=== PATIENT | female | born 1990 | race Caucasian/White ===

== ENCOUNTER 2019-05-15 07:23 | Inpatient (IN) | payer MEDICAID ==
[~2019-05-15 07:23] MED LIST: Bupivacaine 0.25% 10 ML SDV ONE
[2019-05-15] MEDS ORDERED: Nalbuphine 10 MG/1 ML Vial IVPUSH PRN (08:52)
[2019-05-15] MEDS ORDERED: Sodium Chloride 0.9% 10 ML Syringe FLUSH PRN (08:52)
[2019-05-15] MEDS ORDERED: Acetaminophen 325 MG Tab PO PRN (08:52)
[2019-05-15] MEDS ORDERED: Oxytocin/Lactated Ringers 10 UNIT/1,000 ML BAG IV SCH ×2 (09:00)
[2019-05-15] MEDS ORDERED: Ondansetron 4 MG/2 ML SDV IVPUSH PRN (10:42)
[2019-05-15] MEDS ORDERED: ePHEDrine 50 MG/ML SDV IVPUSH PRN (10:42)
--- NOTE | 2019-05-15 10:44 | PCM.PREANE ---
Preanesthetic Assessment - Anesthesia/Transfusion/Family Hx Anesthesia History: No Prior Anesthesia Family History of Anesthesia Reaction: No Transfusion History: No Prior Transfusion(s) Intubation History: Unknown - Review of Systems General: No Symptoms Pulmonary: No Symptoms (smoker: less than 1/2 ppd times 10 years), Cough Cardiovascular: No Symptoms (PIH at the end of ) Gastrointestinal: No Symptoms (GERD) Neurological: No Symptoms, Headache (migraines) Other: Reports: None - Physical Assessment NPO Status Date: 05/14/19 NPO Status Time: 20:00 Vital Signs: Last Vital Signs Temp 36.8 C 05/15/19 08:52 Pulse 84 05/15/19 08:52 Resp 16 05/15/19 08:52 BP 148/89 H 05/15/19 08:52 Pulse Ox Height: 1.7 m Weight: 101.605 kg ASA Class: 2 Mental Status: Alert & Oriented x3 Airway Class: Mallampati = 2 Dentition: Reports: Normal Dentition, Caries Thyro-Mental Finger Breadths: 3 Mouth Opening Finger Breadths: 3 ROM/Head Extension: Full Lungs: Clear to Auscultation, Normal Respiratory Effort Cardiovascular: Regular Rate, Regular Rhythm, No Murmurs - Lab Values: Laboratory Last Values WBC 10.51 K/mm3 (3.98-10.04) H 05/15/19 09:25 RBC 4.09 M/mm3 (3.98-5.22) 05/15/19 09:25 Hgb 11.4 gm/L (11.2-15.7) 05/15/19 09:25 Hct 35.6 % (34.1-44.9) 05/15/19 09:25 MCV 87.0 fl (79.4-94.8) 05/15/19 09:25 MCH 27.9 pg (25.6-32.2) 05/15/19 09:25 MCHC 32.0 g/dl (32.2-35.5) L 05/15/19 09:25 RDW Std Deviation 48.8 fL (36.4-46.3) H 05/15/19 09:25 Plt Count 234 K/mm3 (182-369) 05/15/19 09:25 MPV 12.2 fl (9.4-12.3) 05/15/19 09:25 Neut % (Auto) 80.3 % (34.0-71.1) H 05/15/19 09:25 Lymph % (Auto) 12.4 % (19.3-51.7) L 05/15/19 09:25 [place] % (Auto) 5.8 % (4.7-12.5) 05/15/19 09:25 Eos % (Auto) 0.9 (0.7-5.8) 05/15/19 09:25 Baso % (Auto) 0.2 % (0.1-1.2) 05/15/19 09:25 Neut # (Auto) 8.45 K/mm3 (1.56-6.13) H 05/15/19 09:25 Lymph # (Auto) 1.30 K/mm3 (1.18-3.74) 05/15/19 09:25 [place] # (Auto) 0.61 K/mm3 (0.24-0.36) H 05/15/19 09:25 Eos # (Auto) 0.09 K/mm3 (0.04-0.36) 05/15/19 09:25 Baso # (Auto) 0.02 K/mm3 (0.01-0.08) 05/15/19 09:25 Sodium 137 mEq/L (136-145) 05/15/19 09:25 Potassium 3.5 mEq/L (3.5-5.1) 05/15/19 09:25 Chloride 103 mEq/L (98-107) 05/15/19 09:25 Carbon Dioxide 21 mEq/L (21-32) 05/15/19 09:25 Anion Gap 16.5 (5-15) H 05/15/19 09:25 BUN 7 mg/dL (7-18) 05/15/19 09:25 Creatinine 0.6 mg/dL (0.55-1.02) 05/15/19 09:25 Est Cr Clr Drug Dosing 136.96 mL/min 05/15/19 09:25 Estimated GFR (MDRD) > 60 mL/min (>60) 05/15/19 09:25 BUN/Creatinine Ratio 11.7 (14-18) L 05/15/19 09:25 Glucose 86 mg/dL (74-106) 05/15/19 09:25 Calcium 8.4 mg/dL (8.5-10.1) L 05/15/19 09:25 Total Bilirubin 0.1 mg/dL (0.2-1.0) L 05/15/19 09:25 AST 19 U/L (15-37) 05/15/19 09:25 ALT 17 U/L (14-59) 05/15/19 09:25 Alkaline Phosphatase 83 U/L (46-116) 05/15/19 09:25 Total Protein 6.6 g/dl (6.4-8.2) 05/15/19 09:25 Albumin 2.3 g/dl (3.4-5.0) L 05/15/19 09:25 Globulin 4.3 gm/dL 05/15/19 09:25 Albumin/Globulin Ratio 0.5 (1-2) L 05/15/19 09:25 Above labs reviewed and noted and within acceptable ranges to proceed with epidural if desired. - Allergies Allergies/Adverse Reactions: Allergies Allergy/AdvReac Type Severity Reaction Status Date / Time banana Allergy Anaphylactic Verified 05/15/19 10:10 Shock kiwi Allergy Facial Verified 05/15/19 10:10 Swelling Penicillins Allergy Anaphylactic Verified 05/15/19 10:10 Shock strawberry Allergy Facial Verified 05/15/19 10:10 Swelling - Anesthesia Plan Pre-Op Medication Ordered: None - Acknowledgements Anesthesia Type Planned: Epidural Pt an Appropriate Candidate for the Planned Anesthesia: Yes Alternatives and Risks of Anesthesia Discussed w Pt/Guardian: Yes Pt/Guardian Understands and Agrees with Anesthesia Plan: Yes PreAnesthesia Questionnaire - HOME MEDS Home Medications: Home Meds Acetaminophen [Tylenol Extra Strength] 500 mg PO 05/15/19 [History] Vits #93/Iron Fum/FA [ Formula Tablet] 05/15/19 [History] - CURRENT (IN HOUSE) MEDS Current Meds: Current Medications Acetaminophen (Tylenol) 650 mg PO Q6H PRN PRN Reason: Pain (Mild 1-3) and fever Lactated Ringer's (Ringers, Lactated) 1,000 mls @ 100 mls/hr IV ASDIRECTED BERRY Oxytocin/Lactated Ringer's (Pitocin In Lr 10 Units/1,000 Ml) 10 unit in 1,000 mls @ 12 mls/hr IV TITRATE BERRY; Protocol Oxytocin/Lactated Ringer's (Pitocin In Lr 10 Units/1,000 Ml) 10 unit in 1,000 mls @ 100 mls/hr IV .CONTINUOUS BERRY Nalbuphine HCl (Nubain) 10 mg IVPUSH Q2H PRN PRN Reason: Pain Sodium Chloride (Saline Flush) 10 ml FLUSH ASDIRECTED PRN PRN Reason: Keep Vein Open
[2019-05-15] MEDS ORDERED: Phenylephrine 1 MG in Sodium Chloride 0.9% 10 ML IV SCH (10:45)
[2019-05-15] MEDS ORDERED: Bupivacaine/fentaNYL/NS 100 ML Bag EPIDUR SCH (10:45)
[2019-05-15] MEDS: Lactated Ringers 1,000 ML IV SCH ×2 (11:01→14:59)
--- NOTE | 2019-05-15 12:42 | PCM.LDHP ---
L&D History of Present Illness - General Date of Service: 05/15/19 Admit Problem/Dx: Patient Status Order with Admit Dx/Problem 05/15/19 07:44 Patient Status [ADT] Routine 05/15/19 08:52 Patient Status [ADT] Routine Admission Diagnosis/Problem Admission Diagnosis/Problem Gestational hypertension Source of Information: Patient History Limitations: Reports: No Limitations - History of Present Illness Introduction:: Lida Balderrama is a 28 year old female at 39 weeks 5 days by LMP consistent with 29 week ultrasound (KARTHIK 05/17/2019) who presented to labor and delivery for evaluation of labor. She reports that she started having regular and painful contractions about every 2-3 minutes that started last evening around 11:30 PM and continued throughout the night. They were lasting for about 1 minute at a time. This morning she came into labor and delivery for evaluation of these contractions and they had slowed down by the time she arrived to the hospital. She denies any leaking of fluid or vaginal bleeding. She reports that she was having good movement. She denies any headache, vision changes or epigastric pain. Improves with: Reports: None Worsens with: Reports: None Associated Symptoms: Denies: vaginal bleeding, vaginal discharge, vaginal fluid Present Illness Comments:: Lida Balderrama is a 28 year old female at 39 weeks 5 days by LMP consistent with 29 week ultrasound (KARTHIK 05/17/2019) who is undergoing induction of labor for gestational hypertension. She has had inconsistent care with myself starting at 28 weeks gestational age. She had her labs drawn at the [facility] but did not have any ultrasound testing done early in the . She reports that she was having issues with insurance and that is why she did not come in for earlier care. She was nonimmune to hepatitis B and was started on the hepatitis B vaccine regimen. She received her first dose of the hepatitis B vaccine on 02/27/2019 and second dose on 05/13/2019. She was given TDaP vaccine on 02/27/2019. Her care is complicated by: * Gestational hypertension with blood pressure of 154/106 on 05/13/2019 and blood pressure of 148/89 on arrival to labor and delivery today. * Late care starting at 28 weeks gestational age. * Inconsistent care with only 4 visits after she established care * Hepatitis B nonimmune with negative hepatitis B surface antibody testing in . No evidence of hepatitis B infection with negative hepatitis B surface antigen. * Gastroesophageal reflux disease and able to be controlled with omeprazole 40 mg daily * Elevated 1 hour glucose tolerance test with a value of 143 and did not complete three-hour glucose tolerance test * Patient did not have anatomy ultrasound performed during this labs Blood type: A+ Antibody screen: Negative Urine culture: Consistent with contamination Rubella status: Immune Hepatitis B surface antigen: Negative Hepatitis B surface antibody: Negative, nonimmune to hepatitis B RPR: Negative HIV: Negative Varicella-zoster: Immune Gonorrhea: Negative Chlamydia: Negative Anatomy ultrasound: Not done One hour glucose tolerance test: 143 Second trimester hematocrit/hemoglobin: 37.3%/11.0 on 01/27/2019 Platelets: 299 on 01/27/2019 GBS status: Negative Third trimester hematocrit/hemoglobin: 37.6%/12.1 on 04/10/2019 Third trimester platelets: 288 on 04/10/2019 - Related Data Allergies/Adverse Reactions: Allergies Allergy/AdvReac Type Severity Reaction Status Date / Time banana Allergy Anaphylactic Verified 05/15/19 10:10 Shock kiwi Allergy Facial Verified 05/15/19 10:10 Swelling Penicillins Allergy Anaphylactic Verified 05/15/19 10:10 Shock strawberry Allergy Facial Verified 05/15/19 10:10 Swelling Home Medications: Home Meds Acetaminophen [Tylenol Extra Strength] 500 mg PO 05/15/19 [History] Vits #93/Iron Fum/FA [ Formula Tablet] 05/15/19 [History] Past Medical History Gastrointestinal History: Reports: Other (See Below) Other Gastrointestinal History: acid reflux 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 Social & Family History - Tobacco Use Smoking Status *Q: Current Every Day Smoker Years of Tobacco use: 10 Packs/Tins Daily: 0.5 - Tobacco Core Measures Tobacco Use/Smoking Within Last 30 Days: Yes Smoking Frequency Within Last 30 Days: Reports: Five or More Cigarettes Per Day Desires Tobacco Cessation Medication: Refuses FDA Approved Med - Alcohol Use Alcohol Use History: No - Recreational Drug Use Recreational Drug Use: No - Living Situation & Occupation Living situation: Reports: Single, with Significant Other H&P Review of Systems - Review of Systems: Review Of Systems: See Below General: Reports: Chills. Denies: Fever, Malaise, Weakness, Fatigue HEENT: Denies: Headaches, Post Nasal Drip, Sinus Congestion, Sore Throat, Visual Changes Pulmonary: Reports: Cough (from smoking). Denies: Shortness of Breath, Wheezing Cardiovascular: Denies: Chest Pain, Palpitations, Dyspnea on Exertion, Orthopnea Gastrointestinal: Reports: Nausea, Vomiting (several episodes of emesis overnight). Denies: Abdominal Pain, Constipation, Diarrhea Genitourinary: Denies: Dysuria, Frequency, Burning, Pain, Urgency Musculoskeletal: Reports: Back Pain (and pelvic pain) Skin: Denies: Rash, Lesions Psychiatric: Denies: Depression, Anxiety Hematologic/Lymphatic: Denies: Anemia L&D Exam - Exam Exam: See Below - Vital Signs Vital Signs: Last Vital Signs Temp 36.8 C 05/15/19 08:52 Pulse 84 05/15/19 08:52 Resp 16 05/15/19 08:52 BP 148/89 H 05/15/19 08:52 Pulse Ox Weight: 101.605 kg - OB Specific Contraction Intensity: Irritability Movement: Active Heart Tones: Present Heart Tones per Min: 130 (positive 15 x 15 accelerations, no decelerations ) Heart Rate (FHR) Variability: Moderate (6-25 bmp) Presentation: Vertex Estimated Weight: 8-8.5 lbs by Le[place] - Onofre Score Onofre Score Cervix Position: Anterior Onofre Score Consistency: Soft Onofre Score Effacement: >80% (80%) Onofre Score Dilation: 3-4 cm (3 cm) Onofre Score 's Station: -1 ,0 (-1) Onofre Score Total: 11 - Exam General: Alert, Oriented HEENT: Conjunctiva Clear, EOMI Neck: Supple, Trachea Midline Lungs: Clear to Auscultation, Normal Respiratory Effort Cardiovascular: Regular Rate, Regular Rhythm GI/Abdominal Exam: Soft, Non-Tender, No Distention, Other (Gravid). No: Guarding, Rigid, Rebound Extremities: Normal Inspection, Pedal Edema (trace, edema to midshins bilaterally) Skin: Warm, Dry, Intact Psychiatric: Alert, Normal Affect, Normal Mood - Patient Data Lab Results Last 24 hrs: Laboratory Results - last 24 hr 05/15/19 05/15/19 05/15/19 Range/Units 08:57 09:25 09:25 WBC 10.51 H (3.98-10.04) K/mm3 RBC 4.09 (3.98-5.22) M/mm3 Hgb 11.4 (11.2-15.7) gm/L Hct 35.6 (34.1-44.9) % MCV 87.0 (79.4-94.8) fl MCH 27.9 (25.6-32.2) pg MCHC 32.0 L (32.2-35.5) g/dl RDW Std Deviation 48.8 H (36.4-46.3) fL Plt Count 234 (182-369) K/mm3 MPV 12.2 (9.4-12.3) fl Neut % (Auto) 80.3 H (34.0-71.1) % Lymph % (Auto) 12.4 L (19.3-51.7) % [facility] % (Auto) 5.8 (4.7-12.5) % Eos % (Auto) 0.9 (0.7-5.8) Baso % (Auto) 0.2 (0.1-1.2) % Neut # (Auto) 8.45 H (1.56-6.13) K/mm3 Lymph # (Auto) 1.30 (1.18-3.74) K/mm3 [facility] # (Auto) 0.61 H (0.24-0.36) K/mm3 Eos # (Auto) 0.09 (0.04-0.36) K/mm3 Baso # (Auto) 0.02 (0.01-0.08) K/mm3 Sodium 137 (136-145) mEq/L Potassium 3.5 (3.5-5.1) mEq/L Chloride 103 (98-107) mEq/L Carbon Dioxide 21 (21-32) mEq/L Anion Gap 16.5 H (5-15) BUN 7 (7-18) mg/dL Creatinine 0.6 (0.55-1.02) mg/dL Est Cr Clr Drug Dosing 136.96 mL/min Estimated GFR (MDRD) > 60 (>60) mL/min BUN/Creatinine Ratio 11.7 L (14-18) Glucose 86 (74-106) mg/dL POC Glucose (70-105) mg/dL Calcium 8.4 L (8.5-10.1) mg/dL Total Bilirubin 0.1 L (0.2-1.0) mg/dL AST 19 (15-37) U/L ALT 17 (14-59) U/L Alkaline Phosphatase 83 (46-116) U/L Total Protein 6.6 (6.4-8.2) g/dl Albumin 2.3 L (3.4-5.0) g/dl Globulin 4.3 gm/dL Albumin/Globulin Ratio 0.5 L (1-2) Ur Random Creatinine 171.2 H (30.0-125.0) mg/dL U Random Total Protein 31.6 H (0.0-11.8) mg/dL Protein/Creatinin Ratio 184.6 H (0-149) mg/g Urine Opiates Screen (QVGQDT=266) Ur Buprenorphine Scrn (CUTOFF=10) Ur Oxycodone Screen (NVN0AP=211) Urine Methadone Screen (DCJLSK=244) Ur Propoxyphene Screen (NNHBBX=998) Ur Barbiturates Screen (RDPRPT=740) Ur Tricyclics Screen (IPJZHN=348) Ur Phencyclidine Scrn (CUTOFF=25) Ur Amphetamine Screen (HPZPNY=585) U Methamphetamines Scrn (FAXUXP=286) U Benzodiazepines Scrn (SBDBGX=787) U Cocaine Metab Screen (IWXMRB=944) U Marijuana (THC) Screen (CUTOFF=50) 05/15/19 05/15/19 Range/Units 11:13 11:35 WBC (3.98-10.04) K/mm3 RBC (3.98-5.22) M/mm3 Hgb (11.2-15.7) gm/L Hct (34.1-44.9) % MCV (79.4-94.8) fl MCH (25.6-32.2) pg MCHC (32.2-35.5) g/dl RDW Std Deviation (36.4-46.3) fL Plt Count (182-369) K/mm3 MPV (9.4-12.3) fl Neut % (Auto) (34.0-71.1) % Lymph % (Auto) (19.3-51.7) % [facility] % (Auto) (4.7-12.5) % Eos % (Auto) (0.7-5.8) Baso % (Auto) (0.1-1.2) % Neut # (Auto) (1.56-6.13) K/mm3 Lymph # (Auto) (1.18-3.74) K/mm3 [facility] # (Auto) (0.24-0.36) K/mm3 Eos # (Auto) (0.04-0.36) K/mm3 Baso # (Auto) (0.01-0.08) K/mm3 Sodium (136-145) mEq/L Potassium (3.5-5.1) mEq/L Chloride (98-107) mEq/L Carbon Dioxide (21-32) mEq/L Anion Gap (5-15) BUN (7-18) mg/dL Creatinine (0.55-1.02) mg/dL Est Cr Clr Drug Dosing mL/min Estimated GFR (MDRD) (>60) mL/min BUN/Creatinine Ratio (14-18) Glucose (74-106) mg/dL POC Glucose 82 (70-105) mg/dL Calcium (8.5-10.1) mg/dL Total Bilirubin (0.2-1.0) mg/dL AST (15-37) U/L ALT (14-59) U/L Alkaline Phosphatase (46-116) U/L Total Protein (6.4-8.2) g/dl Albumin (3.4-5.0) g/dl Globulin gm/dL Albumin/Globulin Ratio (1-2) Ur Random Creatinine (30.0-125.0) mg/dL U Random Total Protein (0.0-11.8) mg/dL Protein/Creatinin Ratio (0-149) mg/g Urine Opiates Screen Negative (GOBYJD=102) Ur Buprenorphine Scrn Negative (CUTOFF=10) Ur Oxycodone Screen Negative (BFP2PP=249) Urine Methadone Screen Negative (UZMODK=280) Ur Propoxyphene Screen Negative (HOKAKY=330) Ur Barbiturates Screen Presumptive positive H (ONRTJN=149) Ur Tricyclics Screen Negative (TDJINE=583) Ur Phencyclidine Scrn Negative (CUTOFF=25) Ur Amphetamine Screen Negative (NJHWFT=563) U Methamphetamines Scrn Negative (JYJTOP=174) U Benzodiazepines Scrn Negative (IGOPDR=909) U Cocaine Metab Screen Negative (SWXAJD=885) U Marijuana (THC) Screen Negative (CUTOFF=50) Result Diagrams: 05/15/19 09:25 05/15/19 09:25 - Problem List (1) 39 weeks gestation of SNOMED Code(s): 87131893 ICD Code: Z3A.39 - 39 WEEKS GESTATION OF Status: Acute Current Visit: Yes (2) Nonimmune to hepatitis B virus SNOMED Code(s): 236925751 ICD Code: Z78.9 - OTHER SPECIFIED HEALTH STATUS Status: Acute Current Visit: Yes (3) Gestational hypertension SNOMED Code(s): 405363075 ICD Code: O13.9 - GESTATIONAL HTN W/O SIGNIFICANT PROTEINURIA, UNSP TRIMESTER Status: Acute Current Visit: Yes (4) Late care affecting in third trimester SNOMED Code(s): 653970942, 699131101, 435062993 ICD Code: O09.33 - SUPRVSN OF PREG W INSUFFICIENT ANTENAT CARE, THIRD TRIMESTER Status: Acute Current Visit: Yes (5) Limited care in third trimester SNOMED Code(s): 623344283, 016732958 ICD Code: O09.33 - SUPRVSN OF PREG W INSUFFICIENT ANTENAT CARE, THIRD TRIMESTER Status: Acute Current Visit: Yes (6) Abnormal glucose tolerance test (GTT) during , antepartum Status: Acute Current Visit: Yes Problem List Initiated/Reviewed/Updated: Yes Orders Last 24hrs: Active Orders 24 hr Category Date Time Status Patient Status [ADT] Routine ADT 05/15/19 08:52 Active Activity as Tolerated [RC] PFP Care 05/15/19 08:52 Active Blood Glucose Check, Bedside [RC] Q2HR Care 05/15/19 08:56 Active Communication Order [RC] ASDIRECTED Care 05/15/19 08:52 Active Heart Tones [RC] ASDIRECTED Care 05/15/19 08:53 Active Non Stress Test [RC] PER UNIT ROUTINE Care 05/15/19 07:44 Active Notify Provider Vital Signs [RC] PRN Care 05/15/19 08:54 Active Notify Provider [RC] ASDIRECTED Care 05/15/19 10:42 Active Notify Provider [RC] PFP Care 05/15/19 08:52 Active Notify Provider [RC] PRN Care 05/15/19 08:52 Active Oxygen Therapy [RC] ASDIRECTED Care 05/15/19 10:42 Active Peripheral IV Care [RC] . DIRECTED Care 05/15/19 08:53 Active Pulse Oximetry [RC] ASDIRECTED Care 05/15/19 10:42 Active Pump Management, Intrathecal [RC] ASDIRECTED Care 05/15/19 08:53 Active Vital Signs [RC] PER UNIT ROUTINE Care 05/15/19 07:44 Active Vital Signs [RC] PER UNIT ROUTINE Care 05/15/19 08:52 Active Regular Diet [DIET] Diet 05/15/19 Breakfast Active RAPID PLASMA REAGIN,RPR [CHEM] Routine Lab 05/15/19 09:25 Received Acetaminophen [Tylenol] Med 05/15/19 08:52 Active 650 mg PO Q6H PRN Bupivacaine/fentaNYL/NS [fentaNYL/Bupivacaine/NS 2 MCG- Med 05/15/19 10:45 Active 0.125% 100 ML] 100 ml EPIDUR ASDIRECTED Lactated Ringers [Ringers, Lactated] 1,000 ml Med 05/15/19 09:00 Active IV ASDIRECTED Nalbuphine [Nubain] Med 05/15/19 08:52 Active 10 mg IVPUSH Q2H PRN Ondansetron [Zofran] Med 05/15/19 10:42 Active 4 mg IVPUSH ONETIME PRN Oxytocin/Lactated Ringers [Pitocin in LR 10 Units/1,000 Med 05/15/19 09:00 Active ML] 10 unit in 1,000 ml IV .CONTINUOUS Oxytocin/Lactated Ringers [Pitocin in LR 10 Units/1,000 Med 05/15/19 09:00 Active ML] 10 unit in 1,000 ml IV TITRATE Phenylephrine [Kem-Synephrine] 1 mg Med 05/15/19 10:45 Active Sodium Chloride 0.9% [Normal Saline] 10 ml IV TITRATE Sodium Chloride 0.9% [Saline Flush] Med 05/15/19 08:52 Active 10 ml FLUSH ASDIRECTED PRN ePHEDrine [ePHEDrine sulfate] Med 05/15/19 10:42 Active 5 mg IVPUSH ASDIRECTED PRN fentaNYL [Sublimaze] Med 05/15/19 10:42 Active 100 mcg EPIDUR Q3H PRN Electronic Heart Tones Ext w TOCO [WOMSER] Oth 05/15/19 08:52 Ordered Routine Electronic Heart Tones Internal [WOMSER] Per Unit Ot 05/15/19 08:52 Ordered Routine Peripheral IV Insertion Adult [OM.PC] Routine Oth 05/15/19 08:52 Ordered Resuscitation Status Routine Resus Stat 05/15/19 07:44 Ordered Medication Orders Acetaminophen (Tylenol) 650 mg PO Q6H PRN PRN Reason: Pain (Mild 1-3) and fever Ephedrine Sulfate (Ephedrine Sulfate) 5 mg IVPUSH ASDIRECTED PRN PRN Reason: Hypotension Stop: 05/15/19 23:00 Fentanyl (Sublimaze) 100 mcg EPIDUR Q3H PRN PRN Reason: Pain Stop: 05/15/19 23:00 Fentanyl/Bupivacaine HCl (Fentanyl/Bupivacaine/Ns 2 Mcg-0.125% 100 Ml) 100 ml EPIDUR ASDIRECTED BERRY Stop: 05/15/19 23:00 Lactated Ringer's (Ringers, Lactated) 1,000 mls @ 100 mls/hr IV ASDIRECTED BERRY Last Admin: 05/15/19 11:01 Dose: 100 mls/hr Oxytocin/Lactated Ringer's (Pitocin In Lr 10 Units/1,000 Ml) 10 unit in 1,000 mls @ 12 mls/hr IV TITRATE BERRY; Protocol Last Titration: 05/15/19 12:00 Dose: 6 munits/min, 36 mls/hr Titration: 05/15/19 11:30 Dose: 4 munits/min, 24 mls/hr Admin: 05/15/19 11:01 Dose: 2 munits/min, 12 mls/hr Oxytocin/Lactated Ringer's (Pitocin In Lr 10 Units/1,000 Ml) 10 unit in 1,000 mls @ 100 mls/hr IV .CONTINUOUS BERRY Phenylephrine HCl 1 mg/ Sodium (Chloride) 10.1 mls @ 1 mls/sec IV TITRATE BERRY; Protocol Nalbuphine HCl (Nubain) 10 mg IVPUSH Q2H PRN PRN Reason: Pain Ondansetron HCl (Zofran) 4 mg IVPUSH ONETIME PRN PRN Reason: Nausea/Vomiting Stop: 05/15/19 23:00 Sodium Chloride (Saline Flush) 10 ml FLUSH ASDIRECTED PRN PRN Reason: Keep Vein Open Assessment/Plan Comment:: Refer to observation for induction of labor for gestational hypertension at 39 weeks 5 days Start Pitocin for induction of labor Continuous monitoring Place IV and have Lactated Ringer's at 125 ml/hr May have small amounts of regular diet Activity as tolerated May have epidural as desired Plans to breast-feed after delivery Check fingerstick blood glucose value every 2 hours to check for possible need for insulin drip during labor with not having done 3R glucose tolerance test Urine drug screen for limited care Social work consult for previous difficulty with making it to appointments due to transportation difficulty Anticipate vaginal delivery unless otherwise indicated New Cha M.D. 1:20 PM 05/15/2019
[2019-05-15] MEDS: fentaNYL 100 MCG/2 ML SDV EPIDUR PRN ×2 (14:41→16:35)
--- NOTE | 2019-05-15 16:33 | PCM.PNLD ---
Labor Progress Note - VS & Meds Vital Signs: Last Vital Signs Temp 36.8 C 05/15/19 08:52 Pulse 84 05/15/19 08:52 Resp 16 05/15/19 08:52 BP 148/89 H 05/15/19 08:52 Pulse Ox Active Medications: Current Medications Acetaminophen (Tylenol) 650 mg PO Q6H PRN PRN Reason: Pain (Mild 1-3) and fever Ephedrine Sulfate (Ephedrine Sulfate) 5 mg IVPUSH ASDIRECTED PRN PRN Reason: Hypotension Stop: 05/15/19 23:00 Fentanyl (Sublimaze) 100 mcg EPIDUR Q3H PRN PRN Reason: Pain Stop: 05/15/19 23:00 Last Admin: 05/15/19 14:41 Dose: 100 mcg Fentanyl/Bupivacaine HCl (Fentanyl/Bupivacaine/Ns 2 Mcg-0.125% 100 Ml) 100 ml EPIDUR ASDIRECTED BERRY Stop: 05/15/19 23:00 Last Admin: 05/15/19 14:40 Dose: 100 ml Lactated Ringer's (Ringers, Lactated) 1,000 mls @ 100 mls/hr IV ASDIRECTED BERRY Last Admin: 05/15/19 14:59 Dose: 100 mls/hr Oxytocin/Lactated Ringer's (Pitocin In Lr 10 Units/1,000 Ml) 10 unit in 1,000 mls @ 12 mls/hr IV TITRATE BERRY; Protocol Last Titration: 05/15/19 16:08 Dose: 6 munits/min, 36 mls/hr Oxytocin/Lactated Ringer's (Pitocin In Lr 10 Units/1,000 Ml) 10 unit in 1,000 mls @ 100 mls/hr IV .CONTINUOUS BERRY Phenylephrine HCl 1 mg/ Sodium (Chloride) 10.1 mls @ 1 mls/sec IV TITRATE BERRY; Protocol Nalbuphine HCl (Nubain) 10 mg IVPUSH Q2H PRN PRN Reason: Pain Ondansetron HCl (Zofran) 4 mg IVPUSH ONETIME PRN PRN Reason: Nausea/Vomiting Stop: 05/15/19 23:00 Sodium Chloride (Saline Flush) 10 ml FLUSH ASDIRECTED PRN PRN Reason: Keep Vein Open - Uterine Contractions Uterine Monitoring Mode: External [place] Contraction Frequency (min): 2-3 Contraction Duration (sec): 40-60 Contraction Intensity: Moderate to Strong Uterine Resting Tone: Soft - Monitoring Monitor Mode: Doppler/Auscultation Heart Rate (FHR) Per Doppler: 125 Heart Rate (FHR) Variability: Moderate (6-25 bmp) Accelerations: Present, 15x15 Decelerations: Variable, Intermittent (<50% x 20 min) Strip Review: Category II - Vaginal Exam Dilation (cm): 7 Effacement (Percent): 90 Station: 0 Cervical Position: Anterior Sterile Vaginal Exam Performed By: New Cha - Labor Progress (Free Text) Labor Progress: Patient continuing to progress well Epidural not working as well as patient would like. GARMENT CUTTER working with patient for better anesthesia Discontinue fingerstick blood glucose checks as she has had multiple checks that were normal Continue pitocin for induction of labor Plan artificial rupture of membranes once patient is more comfortable with epidural Continue to monitor vital signs for severe range blood pressures Anticipate vaginal delivery unless otherwise indicated. New Cha MD 4:32 PM 05/15/2019
--- NOTE | 2019-05-15 18:56 | PCM.PNLD ---
Labor Progress Note - VS & Meds Vital Signs: Last Vital Signs Temp 36.8 C 05/15/19 08:52 Pulse 84 05/15/19 08:52 Resp 16 05/15/19 08:52 BP 148/89 H 05/15/19 08:52 Pulse Ox Active Medications: Current Medications Acetaminophen (Tylenol) 650 mg PO Q6H PRN PRN Reason: Pain (Mild 1-3) and fever Ephedrine Sulfate (Ephedrine Sulfate) 5 mg IVPUSH ASDIRECTED PRN PRN Reason: Hypotension Stop: 05/15/19 23:00 Fentanyl (Sublimaze) 100 mcg EPIDUR Q3H PRN PRN Reason: Pain Stop: 05/15/19 23:00 Last Admin: 05/15/19 16:35 Dose: 100 mcg Fentanyl/Bupivacaine HCl (Fentanyl/Bupivacaine/Ns 2 Mcg-0.125% 100 Ml) 100 ml EPIDUR ASDIRECTED BERRY Stop: 05/15/19 23:00 Last Admin: 05/15/19 14:40 Dose: 100 ml Lactated Ringer's (Ringers, Lactated) 1,000 mls @ 100 mls/hr IV ASDIRECTED BERRY Last Admin: 05/15/19 14:59 Dose: 100 mls/hr Oxytocin/Lactated Ringer's (Pitocin In Lr 10 Units/1,000 Ml) 10 unit in 1,000 mls @ 12 mls/hr IV TITRATE BERRY; Protocol Last Titration: 05/15/19 17:06 Dose: 4 munits/min, 24 mls/hr Oxytocin/Lactated Ringer's (Pitocin In Lr 10 Units/1,000 Ml) 10 unit in 1,000 mls @ 100 mls/hr IV .CONTINUOUS BERRY Phenylephrine HCl 1 mg/ Sodium (Chloride) 10.1 mls @ 1 mls/sec IV TITRATE BERRY; Protocol Nalbuphine HCl (Nubain) 10 mg IVPUSH Q2H PRN PRN Reason: Pain Ondansetron HCl (Zofran) 4 mg IVPUSH ONETIME PRN PRN Reason: Nausea/Vomiting Stop: 05/15/19 23:00 Sodium Chloride (Saline Flush) 10 ml FLUSH ASDIRECTED PRN PRN Reason: Keep Vein Open - Uterine Contractions Uterine Monitoring Mode: External [place] Contraction Frequency (min): 1-2 Contraction Duration (sec): 40-60 Contraction Intensity: Moderate to Strong Uterine Resting Tone: Soft - Monitoring Monitor Mode: Doppler/Auscultation Heart Rate (FHR) Per Doppler: 125 Heart Rate (FHR) Variability: Moderate (6-25 bmp) Accelerations: Present, 15x15 Decelerations: None Strip Review: Category I - Vaginal Exam Dilation (cm): 8 Effacement (Percent): 100 Station: 1 Cervical Position: Anterior Sterile Vaginal Exam Performed By: New Cha - Labor Progress (Free Text) Labor Progress: Patient continuing with some progress since last check. Epidural working well at this time Artificial rupture of membranes with return of clear fluid. Mother and infant tolerated procedure without difficulty Continue pitocin for induction of labor Continue to monitor vital signs for severe range blood pressures. No evidence of preeclampsia with severe features Anticipate vaginal delivery unless otherwise indicated. New Cha MD 6:57 PM 05/15/2019
[2019-05-15] MEDS ORDERED: Lidocaine 1% 50 ML MDV ONE (22:04)
[2019-05-15] MEDS ORDERED: Oxytocin 10 Units/1 ML SDV ONE (22:18)
--- NOTE | 2019-05-15 23:09 | PCM.DEL ---
L & D Note - General Info Date of Service: 05/15/19 Mother's Due Date: 05/17/19 - Delivery Note Labor: Augmented by ARM, Induced by Oxytocin Delivery Outcome: Livebirth Delivery Method: Spontaneous Vaginal Delivery-Single Delivery Mode: Vacuum Extraction (mushroom extractor) Presentation: Left Occiput Anterior (TARIQ) Nuchal Cord: None Prep: Povidone-Iodine (Betadine Anesthesia Type: Epidural, Local Anesthetic: Lidocaine (Xylocaine) 1% Plain (10 mL) Amniotic Fluid Description: Clear Episiotomy Type: None Laceration: 3rd Degree, Perineal (midline) Suture type: Vicryl Suture size: 2-0 (Vicryl rapide and 3-0 Vicryl) Placenta: Intact, Spontaneous Cord: 3 Vessels Estimated Blood Loss: 400 Resuscitation Needed: Yes : Suctioned, Bulb Syringe, Stimulated, Warmed, [place] Used, Warmer Used Provider: New Cha Score 1 min: 7 Score 5 min: 9 Second Stage Interventions: Reports: Pushing Effectively, Pushing Ineffectively (after 1.5 hours of pushing), Pushing, Stirrups/Leg Supports Delivery Comments (Free Text/Narrative):: Stage I: Lida Balderrama was admitted for induction of labor in the setting of gestational hypertension. Patient had initial blood pressure of 148/89 on arrival to labor and delivery and she had previously had a second mild range blood pressure at a previous clinic visit. She did not have any symptoms of preeclampsia with severe features. She had testing that was done that did not show any evidence of preeclampsia. On admission her cervix was dilated to 3 cm. She was GBS negative. She was started on Pitocin for induction of labor. She was given an epidural for anesthesia. She had difficulty getting good pain control with her epidural and had a second bolus of medication and this was able to get her more comfortable. She had artificial rupture membranes with clear fluid. She progressed to complete and noted that she was having significant pelvic pain. She began pushing. Stage II: She was pushing for approximately 1.5 hours and started to have less effectiveness with her pushes. She reported that she was becoming very tired and exhausted with pushing. She felt like she needed some assistance with delivery. Discussed options with patient including vacuum extraction. The risks and benefits were discussed with the patient and she gave verbal consent. A kiwi mushroom type vacuum extractor was applied to the head and care was taken to ensure that there is not any vaginal tissue between the suction cup and head. With the next contraction suction was applied to 550 mmHg and gentle downward traction was applied. The infant was brought down somewhat with this contraction and vacuum was released at the end of the contraction. With the next contraction the suction was applied again to 550 mmHg and with 5 pushes during this contraction the head was able to be delivered. The vacuum extractor was applied for a total of 60 seconds. There were no pop offs. On 05/15/2019 she had a vacuum assisted vaginal delivery of a live male at 2202. Apgars of 7 & 9. Weight of 3310 g (7 lbs 4.8 oz). Length of 21 inches. There was no nuchal cord. was delivered in TARIQ position. The cord was doubly clamped and cut by father of the infant. was placed on mother's abdomen. Infant was then taken to the warmer for additional resuscitation. Stage III: She had a spontaneous delivery of an intact placenta in Janet presentation. Three vessel cord. She was given pitocin and fundal massage. She had a complete third-degree midline perineal laceration. The external anal sphincter muscle capsule was identified and was repaired with 4 [id number] sutures in the posterior quadrant, then in the superior quadrant, then in the inferior quadrant and then in the anterior quadrant. The remainder of the laceration was repaired in normal fashion with 3-0 Vicryl. Mom and baby were stable to recovery. EBL of 400 mL. New Cha MD 11:21 PM 05/15/2019 Induction Criteria - Onofre Score Onofre Score Dilation: 3-4 cm Onofre Score Effacement: >80% Onofre Score Infant's Station: -1 ,0 Onofre Score Consistency: Soft Onofre Score Cervix Position: Anterior Onofre Score Total: 11 Onofre Score Presenting Part: Reports: Cephalic - Induction Gestational Age >/= 39 wks: No Medical Indication: Gestational hypertension at 39 weeks 5 days Estimated Pelvis: Reports: Adequate Reassuring Monitoring Strip: Yes Absence of Tachy Systole: Yes - Augmentation Estimated Pelvis: Reports: Adequate Weight Estimated:: Reports: AGA Reassuring Monitoring Strip: Yes Absence of Tachy Systole: Yes Vacuum Extractor Progress Note - Alternative Labor Strategies Considered Alternative Labor Strategies Considered:: Reports: Yes Strategies Considered:: Reports: Contraction Intensity Adequate, Position Changes Used to Facilitate Rotation & Descent, Empty Bladder, Rest Indications Considered:: Reports: Yes Indications:: Reports: Shortening of 2nd Stage for Maternal Benefit Time Out:: Reports: Yes - Patient Prepared Patient Prepared:: Reports: Yes Informed Consent:: Reports: Verbal Risks: Reports: Yes Risks Include:: Reports: Laceration, Shoulder Dystocia, Maternal Injury, Other ( injury) Anesthesia/Analgesia Adequate:: Reports: Yes - Probability of Success High Probability of Success:: Reports: Yes Weight Estimated:: Reports: AGA Patient Diabetic:: Reports: No Pelvis Adequate:: Reports: Yes Position:: TARIQ Asynclitic:: Reports: No Station:: +2 - Application Time Maximum Application Time & Number of Pop-Offs Predetermined:: Reports: Yes Maximum Pressure Maintained in [place] (cm Hg):: 55 Total Application Time (min): *max=20min: 1 Number of Times Cup Disengaged:: 0 Type of Vacuum Used:: Reports: Cup: Mushroom type Vacuum Extraction: Successful - Exit Strategy Exit strategy available:: Reports: Yes and resuscitation teams readily available:: Reports: Yes - General Info Date of Service: 05/15/19 - Patient Data Vitals - Most Recent: Last Vital Signs Temp 36.8 C 05/15/19 08:52 Pulse 84 05/15/19 08:52 Resp 16 05/15/19 08:52 BP 148/89 H 05/15/19 08:52 Pulse Ox Weight - Most Recent: 101.605 kg I&O - Last 24 Hours: Intake & Output 05/15/19 05/15/19 05/16/19 14:59 22:59 06:59 Intake Total 1000 Balance 1000 Lab Results Last 24 Hours: Laboratory Results - last 24 hr 05/15/19 05/15/19 05/15/19 Range/Units 08:57 09:25 09:25 WBC 10.51 H (3.98-10.04) K/mm3 RBC 4.09 (3.98-5.22) M/mm3 Hgb 11.4 (11.2-15.7) gm/L Hct 35.6 (34.1-44.9) % MCV 87.0 (79.4-94.8) fl MCH 27.9 (25.6-32.2) pg MCHC 32.0 L (32.2-35.5) g/dl RDW Std Deviation 48.8 H (36.4-46.3) fL Plt Count 234 (182-369) K/mm3 MPV 12.2 (9.4-12.3) fl Neut % (Auto) 80.3 H (34.0-71.1) % Lymph % (Auto) 12.4 L (19.3-51.7) % [place] % (Auto) 5.8 (4.7-12.5) % Eos % (Auto) 0.9 (0.7-5.8) Baso % (Auto) 0.2 (0.1-1.2) % Neut # (Auto) 8.45 H (1.56-6.13) K/mm3 Lymph # (Auto) 1.30 (1.18-3.74) K/mm3 [place] # (Auto) 0.61 H (0.24-0.36) K/mm3 Eos # (Auto) 0.09 (0.04-0.36) K/mm3 Baso # (Auto) 0.02 (0.01-0.08) K/mm3 Sodium 137 (136-145) mEq/L Potassium 3.5 (3.5-5.1) mEq/L Chloride 103 (98-107) mEq/L Carbon Dioxide 21 (21-32) mEq/L Anion Gap 16.5 H (5-15) BUN 7 (7-18) mg/dL Creatinine 0.6 (0.55-1.02) mg/dL Est Cr Clr Drug Dosing 136.96 mL/min Estimated GFR (MDRD) > 60 (>60) mL/min BUN/Creatinine Ratio 11.7 L (14-18) Glucose 86 (74-106) mg/dL POC Glucose (70-105) mg/dL Calcium 8.4 L (8.5-10.1) mg/dL Total Bilirubin 0.1 L (0.2-1.0) mg/dL AST 19 (15-37) U/L ALT 17 (14-59) U/L Alkaline Phosphatase 83 (46-116) U/L Total Protein 6.6 (6.4-8.2) g/dl Albumin 2.3 L (3.4-5.0) g/dl Globulin 4.3 gm/dL Albumin/Globulin Ratio 0.5 L (1-2) Ur Random Creatinine 171.2 H (30.0-125.0) mg/dL U Random Total Protein 31.6 H (0.0-11.8) mg/dL Protein/Creatinin Ratio 184.6 H (0-149) mg/g Urine Opiates Screen (MUJOMM=483) Ur Buprenorphine Scrn (CUTOFF=10) Ur Oxycodone Screen (SOW0QY=294) Urine Methadone Screen (PEAINE=472) Ur Propoxyphene Screen (AOKRBO=016) Ur Barbiturates Screen (OGPRXO=358) Ur Tricyclics Screen (QECMNK=971) Ur Phencyclidine Scrn (CUTOFF=25) Ur Amphetamine Screen (QOQWXQ=716) U Methamphetamines Scrn (GPSEMC=724) U Benzodiazepines Scrn (MRFMYW=272) U Cocaine Metab Screen (CJAGFZ=150) U Marijuana (THC) Screen (CUTOFF=50) 05/15/19 05/15/19 05/15/19 Range/Units 11:13 11:35 13:04 WBC (3.98-10.04) K/mm3 RBC (3.98-5.22) M/mm3 Hgb (11.2-15.7) gm/L Hct (34.1-44.9) % MCV (79.4-94.8) fl MCH (25.6-32.2) pg MCHC (32.2-35.5) g/dl RDW Std Deviation (36.4-46.3) fL Plt Count (182-369) K/mm3 MPV (9.4-12.3) fl Neut % (Auto) (34.0-71.1) % Lymph % (Auto) (19.3-51.7) % [place] % (Auto) (4.7-12.5) % Eos % (Auto) (0.7-5.8) Baso % (Auto) (0.1-1.2) % Neut # (Auto) (1.56-6.13) K/mm3 Lymph # (Auto) (1.18-3.74) K/mm3 [place] # (Auto) (0.24-0.36) K/mm3 Eos # (Auto) (0.04-0.36) K/mm3 Baso # (Auto) (0.01-0.08) K/mm3 Sodium (136-145) mEq/L Potassium (3.5-5.1) mEq/L Chloride (98-107) mEq/L Carbon Dioxide (21-32) mEq/L Anion Gap (5-15) BUN (7-18) mg/dL Creatinine (0.55-1.02) mg/dL Est Cr Clr Drug Dosing mL/min Estimated GFR (MDRD) (>60) mL/min BUN/Creatinine Ratio (14-18) Glucose (74-106) mg/dL POC Glucose 82 79 (70-105) mg/dL Calcium (8.5-10.1) mg/dL Total Bilirubin (0.2-1.0) mg/dL AST (15-37) U/L ALT (14-59) U/L Alkaline Phosphatase (46-116) U/L Total Protein (6.4-8.2) g/dl Albumin (3.4-5.0) g/dl Globulin gm/dL Albumin/Globulin Ratio (1-2) Ur Random Creatinine (30.0-125.0) mg/dL U Random Total Protein (0.0-11.8) mg/dL Protein/Creatinin Ratio (0-149) mg/g Urine Opiates Screen Negative (ODGVRU=351) Ur Buprenorphine Scrn Negative (CUTOFF=10) Ur Oxycodone Screen Negative (TMY0ML=605) Urine Methadone Screen Negative (FRDCKQ=823) Ur Propoxyphene Screen Negative (ZGMJKV=539) Ur Barbiturates Screen Presumptive positive H (LFRYOD=635) Ur Tricyclics Screen Negative (WJCJGU=643) Ur Phencyclidine Scrn Negative (CUTOFF=25) Ur Amphetamine Screen Negative (EGAJMA=704) U Methamphetamines Scrn Negative (ZXFIPD=658) U Benzodiazepines Scrn Negative (KFHMWL=166) U Cocaine Metab Screen Negative (OBFJQH=730) U Marijuana (THC) Screen Negative (CUTOFF=50) 05/15/19 Range/Units 15:05 WBC (3.98-10.04) K/mm3 RBC (3.98-5.22) M/mm3 Hgb (11.2-15.7) gm/L Hct (34.1-44.9) % MCV (79.4-94.8) fl MCH (25.6-32.2) pg MCHC (32.2-35.5) g/dl RDW Std Deviation (36.4-46.3) fL Plt Count (182-369) K/mm3 MPV (9.4-12.3) fl Neut % (Auto) (34.0-71.1) % Lymph % (Auto) (19.3-51.7) % [place] % (Auto) (4.7-12.5) % Eos % (Auto) (0.7-5.8) Baso % (Auto) (0.1-1.2) % Neut # (Auto) (1.56-6.13) K/mm3 Lymph # (Auto) (1.18-3.74) K/mm3 [place] # (Auto) (0.24-0.36) K/mm3 Eos # (Auto) (0.04-0.36) K/mm3 Baso # (Auto) (0.01-0.08) K/mm3 Sodium (136-145) mEq/L Potassium (3.5-5.1) mEq/L Chloride (98-107) mEq/L Carbon Dioxide (21-32) mEq/L Anion Gap (5-15) BUN (7-18) mg/dL Creatinine (0.55-1.02) mg/dL Est Cr Clr Drug Dosing mL/min Estimated GFR (MDRD) (>60) mL/min BUN/Creatinine Ratio (14-18) Glucose (74-106) mg/dL POC Glucose 79 (70-105) mg/dL Calcium (8.5-10.1) mg/dL Total Bilirubin (0.2-1.0) mg/dL AST (15-37) U/L ALT (14-59) U/L Alkaline Phosphatase (46-116) U/L Total Protein (6.4-8.2) g/dl Albumin (3.4-5.0) g/dl Globulin gm/dL Albumin/Globulin Ratio (1-2) Ur Random Creatinine (30.0-125.0) mg/dL U Random Total Protein (0.0-11.8) mg/dL Protein/Creatinin Ratio (0-149) mg/g Urine Opiates Screen (CTGVZJ=095) Ur Buprenorphine Scrn (CUTOFF=10) Ur Oxycodone Screen (CWD4RJ=182) Urine Methadone Screen (XLZYVN=028) Ur Propoxyphene Screen (KDNLWX=077) Ur Barbiturates Screen (IGGDJC=034) Ur Tricyclics Screen (HBERTL=723) Ur Phencyclidine Scrn (CUTOFF=25) Ur Amphetamine Screen (ZNDILW=846) U Methamphetamines Scrn (JBKBCJ=088) U Benzodiazepines Scrn (JESOBJ=265) U Cocaine Metab Screen (ANKDLU=285) U Marijuana (THC) Screen (CUTOFF=50) Med Orders - Current: Current Medications Acetaminophen (Tylenol) 650 mg PO Q6H PRN PRN Reason: Pain (Mild 1-3) and fever Lactated Ringer's (Ringers, Lactated) 1,000 mls @ 100 mls/hr IV ASDIRECTED BERRY Last Admin: 05/15/19 14:59 Dose: 100 mls/hr Oxytocin/Lactated Ringer's (Pitocin In Lr 10 Units/1,000 Ml) 10 unit in 1,000 mls @ 12 mls/hr IV TITRATE BERRY; Protocol Last Titration: 05/15/19 20:17 Dose: 0 munits/min, 0 mls/hr Oxytocin/Lactated Ringer's (Pitocin In Lr 10 Units/1,000 Ml) 10 unit in 1,000 mls @ 100 mls/hr IV .CONTINUOUS BERRY Phenylephrine HCl 1 mg/ Sodium (Chloride) 10.1 mls @ 1 mls/sec IV TITRATE BERRY; Protocol Nalbuphine HCl (Nubain) 10 mg IVPUSH Q2H PRN PRN Reason: Pain Last Admin: 05/15/19 20:05 Dose: 10 mg Sodium Chloride (Saline Flush) 10 ml FLUSH ASDIRECTED PRN PRN Reason: Keep Vein Open Discontinued Medications Ephedrine Sulfate (Ephedrine Sulfate) 5 mg IVPUSH ASDIRECTED PRN PRN Reason: Hypotension Stop: 05/15/19 23:00 Fentanyl (Sublimaze) 100 mcg EPIDUR Q3H PRN PRN Reason: Pain Stop: 05/15/19 23:00 Last Admin: 05/15/19 16:35 Dose: 100 mcg Fentanyl/Bupivacaine HCl (Fentanyl/Bupivacaine/Ns 2 Mcg-0.125% 100 Ml) 100 ml EPIDUR ASDIRECTED BERRY Stop: 05/15/19 23:00 Last Admin: 05/15/19 14:40 Dose: 100 ml Lidocaine HCl (Xylocaine 1%) Confirm Administered Dose 50 ml .ROUTE .STK-MED ONE Stop: 05/15/19 22:05 Ondansetron HCl (Zofran) 4 mg IVPUSH ONETIME PRN PRN Reason: Nausea/Vomiting Stop: 05/15/19 23:00 Oxytocin (Pitocin) Confirm Administered Dose 10 unit .ROUTE .STK-MED ONE Stop: 05/15/19 22:19 - Problem List & Annotations (1) 39 weeks gestation of SNOMED Code(s): 94585738 Code(s): Z3A.39 - 39 WEEKS GESTATION OF Status: Acute Current Visit: Yes (2) Nonimmune to hepatitis B virus SNOMED Code(s): 089693299 Code(s): Z78.9 - OTHER SPECIFIED HEALTH STATUS Status: Acute Current Visit: Yes (3) Gestational hypertension SNOMED Code(s): 999378195 Code(s): O13.9 - GESTATIONAL HTN W/O SIGNIFICANT PROTEINURIA, UNSP TRIMESTER Status: Acute Current Visit: Yes (4) Late care affecting in third trimester SNOMED Code(s): 299745750, 659034275, 230300472 Code(s): O09.33 - SUPRVSN OF PREG W INSUFFICIENT ANTENAT CARE, THIRD TRIMESTER Status: Acute Current Visit: Yes (5) Limited care in third trimester SNOMED Code(s): 720119865, 165883565 Code(s): O09.33 - SUPRVSN OF PREG W INSUFFICIENT ANTENAT CARE, THIRD TRIMESTER Status: Acute Current Visit: Yes (6) Abnormal glucose tolerance test (GTT) during , antepartum Status: Acute Current Visit: Yes (7) Vaginal delivery SNOMED Code(s): 621114430 Code(s): O80 - ENCOUNTER FOR FULL-TERM UNCOMPLICATED DELIVERY Status: Acute Current Visit: Yes (8) Vacuum extractor delivery, delivered SNOMED Code(s): 157229507 Code(s): O66.5 - ATTEMPTED APPLICATION OF VACUUM EXTRACTOR AND FORCEPS Status: Acute Current Visit: Yes (9) Third degree perineal laceration SNOMED Code(s): 23545474, 361336823 Code(s): O70.20 - THIRD DEGREE PERINEAL LACERATION DURING DELIVERY, UNSP Status: Acute Current Visit: Yes - Problem List Review Problem List Initiated/Reviewed/Updated: Yes - My Orders Last 24 Hours: My Active Orders 05/15/19 07:44 Non Stress Test [RC] PER UNIT ROUTINE Vital Signs [RC] PER UNIT ROUTINE Resuscitation Status Routine 05/15/19 08:52 Patient Status [ADT] Routine Activity as Tolerated [RC] PFP Communication Order [RC] ASDIRECTED Notify Provider [RC] PFP Notify Provider [RC] PRN Vital Signs [RC] PER UNIT ROUTINE Acetaminophen [Tylenol] 650 mg PO Q6H PRN Nalbuphine [Nubain] 10 mg IVPUSH Q2H PRN Sodium Chloride 0.9% [Saline Flush] 10 ml FLUSH ASDIRECTED PRN Electronic Heart Tones Ext w TOCO [WOMSER] Routine Electronic Heart Tones Internal [WOMSER] Per Unit Routine Peripheral IV Insertion Adult [OM.PC] Routine 05/15/19 08:53 Heart Tones [RC] ASDIRECTED Peripheral IV Care [RC] . DIRECTED Pump Management, Intrathecal [RC] ASDIRECTED 05/15/19 08:54 Notify Provider Vital Signs [RC] PRN 05/15/19 08:56 Blood Glucose Check, Bedside [RC] .PRN 05/15/19 09:00 Lactated Ringers [Ringers, Lactated] 1,000 ml IV ASDIRECTED Oxytocin/Lactated Ringers [Pitocin in LR 10 Units/1,000 ML] 10 unit in 1,000 ml IV .CONTINUOUS Oxytocin/Lactated Ringers [Pitocin in LR 10 Units/1,000 ML] 10 unit in 1,000 ml IV TITRATE 05/15/19 09:25 RAPID PLASMA REAGIN,RPR [CHEM] Routine 05/15/19 22:55 Patient Status Manage Transfer [TRANSFER] Routine 05/15/19 Breakfast Regular Diet [DIET] - Plan Plan:: Admit to inpatient following vacuum-assisted vaginal delivery Patient with infiltration of her IV during delivery. Patient given Pitocin 10 units IM after delivery of the placenta Regular diet Vitals per unit routine. Monitor for any signs or symptoms of severe features of preeclampsia. Patient with gestational hypertension during labor. Ibuprofen and Tylenol for pain control Assist with breast-feeding as needed Continue to monitor lochia Plan for patient to receive Colace due to third-degree laceration. Patient should try to have soft bowel movements to reduce chances for complications with her third-degree laceration. Plan for case management to see patient due to late care with inconsistent visits once established due to transportation issues. Anticipate discharge home on day #2 New Cha MD 11:21 PM 05/15/2019
[2019-05-15] MEDS: Acetaminophen 325 MG Tab PO PRN (23:15)
[2019-05-15] MEDS: Ibuprofen 600 MG Tab PO PRN (23:15)
[2019-05-15] MEDS ORDERED: Magnesium Hydroxide 400 MG/5 ML Susp 30 ML Cup PO PRN (23:22)
[2019-05-15] MEDS ORDERED: Hydrocortisone Acetate 25 MG Supp RECTAL PRN (23:22)
[2019-05-15] MEDS ORDERED: Lanolin 100% Cream 7 GM Tube TOP PRN (23:22)
[2019-05-15] MEDS ORDERED: Oxytocin 10 Units/1 ML SDV IM ONE (23:22)
[2019-05-15] MEDS ORDERED: Benzocaine/Menthol 20%-0.5% Spray 56 GM Canister TOP PRN (23:22)
[2019-05-15] MEDS ORDERED: Witch Hazel Medicated Pads 40/Jar TOP PRN (23:22)
[2019-05-15] MEDS ORDERED: oxyCODONE 5 MG Tab PO ONE (23:32)
[2019-05-16] MEDS ORDERED: Lactated Ringers 1,000 ML IV ONE (00:36)
[2019-05-16] MEDS ORDERED: Lactated Ringers 1,000 ML IV SCH (00:45)
--- NOTE | 2019-05-16 00:49 | PCM.SN ---
- Free Text/Narrative Note: S: Called back to patient's room to evaluate significant pelvic and rectal pain. Patient reports significant rectal pain that is unable to be controlled. She had been given Tylenol, ibuprofen and oxycodone 5 mg by mouth. These did not help at all with her pain. She did not have any significant vaginal bleeding but has a significant pain. Patient underwent a vacuum-assisted vaginal delivery at 2202 on 05/15/2019. O: Vital Signs - 24 hr 05/15/19 08:52 Temperature [ 36.8 C Temporal] Pulse, 84 Peripheral [ Pulse Oximetry] Respiratory 16 Rate Blood Pressure 148/89 H [Upper Arm] Physical exam Gen.: Moderate distress, laying on right side Lungs: Unlabored breathing Abdomen: Soft, appropriate tenderness, no distention Pelvis: Normal appearing external genitalia. Left labia minora with small hematoma that has not expanded since time of delivery, left and posterior vaginal awan with significant hematoma noted filling the large majority of the vaginal canal. Minimal lochia at this time. After evaluation of the perineum and vaginal canal there was noted to be significant left and posterior vaginal sidewall hematoma. A scalpel was used to drain the hematoma and this was able to get her pain under significant control. The area with suspected vaginal artery laceration was visualized and this was suture ligated using locking sutures into the vaginal sidewall. After the sutures were placed the bleeding had slowed significantly and her pain was improved. Patient lost an additional 600 mL of blood from drainage of the vaginal hematoma and vaginal artery bleeding. Assessment/plan 28-year-old G1 now P1 001 status post vacuum-assisted vaginal delivery with third-degree laceration and vaginal sidewall hematoma and vaginal artery laceration. She underwent drainage of the vaginal hematoma and suture ligation of the arterial bleeding. * CBC and type and screen stat * Insert IV and start 1 L fluid bolus with lactated Ringer's and then continue on 150 mL/h * Oxycodone 5 mg by mouth 1 dose now * Transition to [place] 5/325 to help to control her pain given vaginal hematoma * Continue to monitor vital signs closely for any signs of acute blood loss anemia necessitating transfusion * Continue to monitor for any signs of severe features of preeclampsia including severe range blood pressures * Suspect that vaginal bleeding is stopped at this time and that the vaginal artery is suture ligated. * Anticipate discharge on day #2 New Cha M.D. 12:49 AM 05/16/2019
[2019-05-16] MEDS ORDERED: oxyCODONE 5 MG Tab PO ONE (00:50)
[2019-05-16] MEDS ORDERED: Acetaminophen/HYDROcodone 325-5 MG Tab PO PRN ×2 (00:50)
--- NOTE | 2019-05-16 01:41 | PCM.SN ---
- Free Text/Narrative Note: S: Call to patient's room after she had loss of consciousness after standing. Patient reports that she was standing at the foot of the bed and became lightheaded and dizzy and then lost consciousness. She did not have any signs of a seizure but did have posturing. Patient had just underwent a vacuum- assisted vaginal delivery with subsequent left and posterior vaginal sidewall hematoma that was drained with a total EBL between the 2 procedures being 1000 mL. Patient denies any shortness of breath. She denies any chest pain. After lying down she reports that her lightheadedness and dizziness has improved. She states that she is just tired and fatigued from the long day that she has had and reports that she has had minimal sleep the last 24 hours. She reports that her vaginal pain is at a 4/10 after being at a 10+/10 earlier. O: Gen.: Pale with loss of color of her lips, return of color to her lips after laying in bed for 5-10 minutes, alert and oriented 3 Lungs: Unlabored breathing Heart: Regular rate Abdomen: Soft, appropriate tenderness, fundus at the umbilicus, no distention Pelvis: Minimal bleeding on the perineum Assessment/plan 28-year-old G [id number] status post vacuum-assisted vaginal delivery, complicated by third-degree laceration and vaginal hematoma that was drained and maternal hemorrhage with EBL of 1000 mL, day #1. Suspect the patient had loss of consciousness is due to positional changes with acute blood loss anemia. * Continue with IV fluid bolus and then continue with lactated Ringer's 150 mL/h * CBC at 0500 to check for acute blood loss anemia. Suspect that patient will need blood transfusion * Continue to monitor closely for any signs of severe anemia with persistent tachycardia or hypotension that may necessitate a blood transfusion based on symptoms * If patient continues to be lightheaded and dizzy upon standing would recommend for transfusion * Continue to monitor for any signs of severe features of preeclampsia * Continue to monitor for any signs of worsening of her vaginal hematoma such as severe pain or significant bleeding * Anticipate discharge on day #2 unless otherwise indicated based on patient's condition New Cha M.D. 1:40 AM 05/16/2019
[2019-05-16] MEDS ORDERED: Aluminum Hydroxide/Magnesium Hydroxide/Simethicone Susp 30 ML Cup PO PRN (07:47)
--- NOTE | 2019-05-16 07:59 | PCM.SN ---
- Free Text/Narrative Note: Post Progress Note PPD # 1 Subjective: Doing okay overall. Patient has had short recovery time since delivery and evacuation of vaginal hematoma. Patient has not stood up or ambulated since loss of consciousness episode. Lochia minimal. Patient has not voided since delivery. Denies any nausea or vomiting. She has not had any fluids or food after delivery. She reports that she is having moderate amount of acid reflux and has had this outside of as well. Pain controlled with [place] and Ibuprofen. Patient planning for breast-feeding but has had difficulty latching and she is giving bottle supplementation minimal difficulty. Objective: Vitals: Vital Signs - 8 hr 05/16/19 05/16/19 05/16/19 02:00 02:30 03:00 Blood Pressure 110/65 115/66 109/62 [Upper Arm] 05/16/19 04:00 Blood Pressure 132/78 [Upper Arm] Physical Exam General: Pale, alert and oriented, no acute distress Lungs: Clear to auscultation bilaterally Heart: Regular rate and rhythm Abdomen: Soft, minimal appropriate tenderness, non-distended, fundus midline, nontender, and at the umbilicus Pelvis: Minimal amount of blood on the perineum Extremities: Trace edema in bilateral lower extremities to mid shins Laboratory Results - last 24 hr 05/15/19 05/15/19 05/15/19 Range/Units 08:57 09:25 09:25 WBC 10.51 H (3.98-10.04) K/mm3 RBC 4.09 (3.98-5.22) M/mm3 Hgb 11.4 (11.2-15.7) gm/L Hct 35.6 (34.1-44.9) % MCV 87.0 (79.4-94.8) fl MCH 27.9 (25.6-32.2) pg MCHC 32.0 L (32.2-35.5) g/dl RDW Std Deviation 48.8 H (36.4-46.3) fL Plt Count 234 (182-369) K/mm3 MPV 12.2 (9.4-12.3) fl Neut % (Auto) 80.3 H (34.0-71.1) % Lymph % (Auto) 12.4 L (19.3-51.7) % Cowley % (Auto) 5.8 (4.7-12.5) % Eos % (Auto) 0.9 (0.7-5.8) Baso % (Auto) 0.2 (0.1-1.2) % Neut # (Auto) 8.45 H (1.56-6.13) K/mm3 Lymph # (Auto) 1.30 (1.18-3.74) K/mm3 Cowley # (Auto) 0.61 H (0.24-0.36) K/mm3 Eos # (Auto) 0.09 (0.04-0.36) K/mm3 Baso # (Auto) 0.02 (0.01-0.08) K/mm3 Manual Slide Review Sodium 137 (136-145) mEq/L Potassium 3.5 (3.5-5.1) mEq/L Chloride 103 (98-107) mEq/L Carbon Dioxide 21 (21-32) mEq/L Anion Gap 16.5 H (5-15) BUN 7 (7-18) mg/dL Creatinine 0.6 (0.55-1.02) mg/dL Est Cr Clr Drug Dosing 136.96 mL/min Estimated GFR (MDRD) > 60 (>60) mL/min BUN/Creatinine Ratio 11.7 L (14-18) Glucose 86 (74-106) mg/dL POC Glucose (70-105) mg/dL Calcium 8.4 L (8.5-10.1) mg/dL Total Bilirubin 0.1 L (0.2-1.0) mg/dL AST 19 (15-37) U/L ALT 17 (14-59) U/L Alkaline Phosphatase 83 (46-116) U/L Total Protein 6.6 (6.4-8.2) g/dl Albumin 2.3 L (3.4-5.0) g/dl Globulin 4.3 gm/dL Albumin/Globulin Ratio 0.5 L (1-2) Ur Random Creatinine 171.2 H (30.0-125.0) mg/dL U Random Total Protein 31.6 H (0.0-11.8) mg/dL Protein/Creatinin Ratio 184.6 H (0-149) mg/g Urine Opiates Screen (DQALIH=905) Ur Buprenorphine Scrn (CUTOFF=10) Ur Oxycodone Screen (AMV5WZ=775) Urine Methadone Screen (VAOTUN=557) Ur Propoxyphene Screen (OUZPAF=886) Ur Barbiturates Screen (WTMMTV=489) Ur Tricyclics Screen (QGWOFW=648) Ur Phencyclidine Scrn (CUTOFF=25) Ur Amphetamine Screen (UZLPNC=164) U Methamphetamines Scrn (KXDUJV=084) U Benzodiazepines Scrn (RUCLSW=663) U Cocaine Metab Screen (GAGMDE=529) U Marijuana (THC) Screen (CUTOFF=50) RPR (NONREACTIVE) Blood Type Gel Antibody Screen 05/15/19 05/15/19 Range/Units 09:25 11:35 WBC (3.98-10.04) K/mm3 RBC (3.98-5.22) M/mm3 Hgb (11.2-15.7) gm/L Hct (34.1-44.9) % MCV (79.4-94.8) fl MCH (25.6-32.2) pg MCHC (32.2-35.5) g/dl RDW Std Deviation (36.4-46.3) fL Plt Count (182-369) K/mm3 MPV (9.4-12.3) fl Neut % (Auto) (34.0-71.1) % Lymph % (Auto) (19.3-51.7) % Cowley % (Auto) (4.7-12.5) % Eos % (Auto) (0.7-5.8) Baso % (Auto) (0.1-1.2) % Neut # (Auto) (1.56-6.13) K/mm3 Lymph # (Auto) (1.18-3.74) K/mm3 Cowley # (Auto) (0.24-0.36) K/mm3 Eos # (Auto) (0.04-0.36) K/mm3 Baso # (Auto) (0.01-0.08) K/mm3 Manual Slide Review Sodium (136-145) mEq/L Potassium (3.5-5.1) mEq/L Chloride (98-107) mEq/L Carbon Dioxide (21-32) mEq/L Anion Gap (5-15) BUN (7-18) mg/dL Creatinine (0.55-1.02) mg/dL Est Cr Clr Drug Dosing mL/min Estimated GFR (MDRD) (>60) mL/min BUN/Creatinine Ratio (14-18) Glucose (74-106) mg/dL POC Glucose (70-105) mg/dL Calcium (8.5-10.1) mg/dL Total Bilirubin (0.2-1.0) mg/dL AST (15-37) U/L ALT (14-59) U/L Alkaline Phosphatase (46-116) U/L Total Protein (6.4-8.2) g/dl Albumin (3.4-5.0) g/dl Globulin gm/dL Albumin/Globulin Ratio (1-2) Ur Random Creatinine (30.0-125.0) mg/dL U Random Total Protein (0.0-11.8) mg/dL Protein/Creatinin Ratio (0-149) mg/g Urine Opiates Screen Negative (RLOIRD=580) Ur Buprenorphine Scrn Negative (CUTOFF=10) Ur Oxycodone Screen Negative (JJE4YZ=705) Urine Methadone Screen Negative (FMNXAE=590) Ur Propoxyphene Screen Negative (VBXNKB=041) Ur Barbiturates Screen Presumptive positive H (SFZYZU=187) Ur Tricyclics Screen Negative (CZOGOG=849) Ur Phencyclidine Scrn Negative (CUTOFF=25) Ur Amphetamine Screen Negative (KAXRFP=577) U Methamphetamines Scrn Negative (OBKCLJ=534) U Benzodiazepines Scrn Negative (ZBWHNH=441) U Cocaine Metab Screen Negative (MFGYLN=936) U Marijuana (THC) Screen Negative (CUTOFF=50) RPR Non-reactive (NONREACTIVE) 05/16/19 Range/Units 00:35 WBC 17.60 H (3.98-10.04) K/mm3 RBC 3.30 L (3.98-5.22) M/mm3 Hgb 9.3 L D (11.2-15.7) gm/L Hct 28.9 L (34.1-44.9) % MCV 87.6 (79.4-94.8) fl MCH 28.2 (25.6-32.2) pg MCHC 32.2 (32.2-35.5) g/dl RDW Std Deviation 47.9 H (36.4-46.3) fL Plt Count 249 (182-369) K/mm3 MPV 12.2 (9.4-12.3) fl Neut % (Auto) 90.7 H (34.0-71.1) % Lymph % (Auto) 4.7 L (19.3-51.7) % Cowley % (Auto) 4.1 L (4.7-12.5) % Eos % (Auto) 0.1 L (0.7-5.8) Baso % (Auto) 0.1 (0.1-1.2) % Neut # (Auto) 15.97 H (1.56-6.13) K/mm3 Lymph # (Auto) 0.83 L (1.18-3.74) K/mm3 Cowley # (Auto) 0.72 H (0.24-0.36) K/mm3 Eos # (Auto) 0.01 L (0.04-0.36) K/mm3 Baso # (Auto) 0.01 (0.01-0.08) K/mm3 Manual Slide Review Abnormal smear Sodium (136-145) mEq/L Potassium (3.5-5.1) mEq/L Chloride (98-107) mEq/L Carbon Dioxide (21-32) mEq/L Anion Gap (5-15) BUN (7-18) mg/dL Creatinine (0.55-1.02) mg/dL Est Cr Clr Drug Dosing mL/min Estimated GFR (MDRD) (>60) mL/min BUN/Creatinine Ratio (14-18) Glucose (74-106) mg/dL POC Glucose (70-105) mg/dL Calcium (8.5-10.1) mg/dL Total Bilirubin (0.2-1.0) mg/dL AST (15-37) U/L ALT (14-59) U/L Alkaline Phosphatase (46-116) U/L Total Protein (6.4-8.2) g/dl Albumin (3.4-5.0) g/dl Globulin gm/dL Albumin/Globulin Ratio (1-2) Ur Random Creatinine (30.0-125.0) mg/dL U Random Total Protein (0.0-11.8) mg/dL Protein/Creatinin Ratio (0-149) mg/g Urine Opiates Screen (BUXNLZ=804) Ur Buprenorphine Scrn (CUTOFF=10) Ur Oxycodone Screen (EYS2GN=078) Urine Methadone Screen (RMYRHS=100) Ur Propoxyphene Screen (QKLYKU=304) Ur Barbiturates Screen (YNFOBI=977) Ur Tricyclics Screen (QLFGMX=738) Ur Phencyclidine Scrn (CUTOFF=25) Ur Amphetamine Screen (RVJRDE=838) U Methamphetamines Scrn (BLJQNR=258) U Benzodiazepines Scrn (ACMRQF=820) U Cocaine Metab Screen (FSLEPC=843) U Marijuana (THC) Screen (CUTOFF=50) RPR (NONREACTIVE) Blood Type Gel Antibody Screen 05/16/19 05/16/19 Range/Units 00:35 04:51 WBC 19.27 H (3.98-10.04) K/mm3 RBC 2.83 L (3.98-5.22) M/mm3 Hgb 8.0 L (11.2-15.7) gm/L Hct 24.9 L (34.1-44.9) % MCV 88.0 (79.4-94.8) fl MCH 28.3 (25.6-32.2) pg MCHC 32.1 L (32.2-35.5) g/dl RDW Std Deviation 46.7 H (36.4-46.3) fL Plt Count 235 (182-369) K/mm3 MPV 12.3 (9.4-12.3) fl Neut % (Auto) 90.5 H (34.0-71.1) % Lymph % (Auto) 4.9 L (19.3-51.7) % Cowley % (Auto) 4.0 L (4.7-12.5) % Eos % (Auto) 0.1 L (0.7-5.8) Baso % (Auto) 0.1 (0.1-1.2) % Neut # (Auto) 17.45 H (1.56-6.13) K/mm3 Lymph # (Auto) 0.95 L (1.18-3.74) K/mm3 Cowley # (Auto) 0.77 H (0.24-0.36) K/mm3 Eos # (Auto) 0.01 L (0.04-0.36) K/mm3 Baso # (Auto) 0.01 (0.01-0.08) K/mm3 Manual Slide Review Abnormal smear Sodium (136-145) mEq/L Potassium (3.5-5.1) mEq/L Chloride (98-107) mEq/L Carbon Dioxide (21-32) mEq/L Anion Gap (5-15) BUN (7-18) mg/dL Creatinine (0.55-1.02) mg/dL Est Cr Clr Drug Dosing mL/min Estimated GFR (MDRD) (>60) mL/min BUN/Creatinine Ratio (14-18) Glucose (74-106) mg/dL POC Glucose (70-105) mg/dL Calcium (8.5-10.1) mg/dL Total Bilirubin (0.2-1.0) mg/dL AST (15-37) U/L ALT (14-59) U/L Alkaline Phosphatase (46-116) U/L Total Protein (6.4-8.2) g/dl Albumin (3.4-5.0) g/dl Globulin gm/dL Albumin/Globulin Ratio (1-2) Ur Random Creatinine (30.0-125.0) mg/dL U Random Total Protein (0.0-11.8) mg/dL Protein/Creatinin Ratio (0-149) mg/g Urine Opiates Screen (WOFJYZ=708) Ur Buprenorphine Scrn (CUTOFF=10) Ur Oxycodone Screen (XGG2YV=111) Urine Methadone Screen (HRUBUQ=882) Ur Propoxyphene Screen (ITILHY=847) Ur Barbiturates Screen (JWYXSZ=105) Ur Tricyclics Screen (KLCUXU=734) Ur Phencyclidine Scrn (CUTOFF=25) Ur Amphetamine Screen (JIYIQT=854) U Methamphetamines Scrn (IZAFLP=127) U Benzodiazepines Scrn (HFUOJE=917) U Cocaine Metab Screen (IYPSMJ=326) U Marijuana (THC) Screen (CUTOFF=50) RPR (NONREACTIVE) Blood Type A POSITIVE Gel Antibody Screen Negative ASSESSMENT: 28-year-old female s/p vacuum-assisted vaginal delivery complicated by complete third-degree laceration and subsequent evacuation of posterior and left vaginal sidewall hematoma and hemorrhage of 1000 mL EBL PPD #1 Her is complicated by gestational hypertension, late care starting at 28 weeks gestational age, in consistent care with only 4 visits, hepatitis B nonimmune, gastroesophageal reflux disease, elevated 1 hour glucose tolerance test without three-hour glucose tolerance test and patient did not have anatomy ultrasound performed PLAN: Doing okay overall at this time. Patient has had short recovery since time of delivery. Patient has not had any additional loss of consciousness episodes but has not stood up or ambulated since first episode. Vitals stable overnight. Occasional mild tachycardia into the 100s but returned to normal HR in the 70s-90s Patient using bottle supplementation with minimal difficulty. She desires to try breast-feeding but is having difficulty latching. Assist as needed Lochia minimal. Continue to monitor for appropriate lochia. Continue routine care Patient with hemoglobin of 8.0 this morning. She has not stood up or ambulated at all since her loss of consciousness episode last evening. Repeat CBC at 1400 to check for possible acute blood loss anemia necessitating transfusion. Low threshold for transfusion in this patient given her loss of consciousness episode and hemorrhage of 1000 mL Start Maalox for acid reflux. Patient reports that this works well for her outside of . Continue [place] 1-2 tablets every 6 hours when necessary for pain control with third-degree perineal laceration and vaginal hematoma Start Colace 100 mg twice daily to ensure the patient will have soft bowel movements and use milk of magnesia as needed. Anticipate discharge home tomorrow New Cha MD 7:56 AM 05/16/2019
--- NOTE | 2019-05-16 08:54 | PCM48HPAN ---
Post Anesthesia Note - EVALUATION WITHIN 48HRS OF ANESTHETIC Vital Signs in Normal Range: Yes Patient Participated in Evaluation: Yes Respiratory Function Stable: Yes Airway Patent: Yes Cardiovascular Function Stable: Yes Hydration Status Stable: Yes Pain Control Satisfactory: Yes Nausea and Vomiting Control Satisfactory: Yes Mental Status Recovered: Yes Vital Signs: Last Vital Signs Temp 36.8 C 05/15/19 08:52 Pulse 84 05/15/19 08:52 Resp 16 05/15/19 08:52 BP 132/78 05/16/19 04:00 Pulse Ox - COMMENTS/OBSERVATIONS Free Text/Narrative:: no anesthesia complications noted
[2019-05-16] MEDS: Docusate Sodium 100 MG Cap PO SCH (11:23)
[2019-05-16] MEDS: Prenatal Multivitamin with Calcium/Folic Acid/Iron Tab PO SCH (11:23)
[2019-05-16] MEDS: Acetaminophen 325 MG Tab PO PRN (11:26)
[2019-05-16] MEDS: Ibuprofen 600 MG Tab PO PRN ×2 (17:35→23:45)
[2019-05-17] MEDS: Docusate Sodium 100 MG Cap PO SCH ×3 (05:29→23:40)
--- NOTE | 2019-05-17 07:59 | PCM.PNPP ---
- General Info Date of Service: 05/17/19 Admission Dx/Problem (Free Text): Patient Status Order with Admit Dx/Problem 05/15/19 07:44 Patient Status [ADT] Routine 05/15/19 08:52 Patient Status [ADT] Routine Admission Diagnosis/Problem Admission Diagnosis/Problem Gestational hypertension Subjective Update: Patient is day 2 status post vacuum assisted vaginal delivery on 05/15/19. Patient did have vaginal hematoma following delivery with total blood loss of approximately 1100 mL. Today, patient has some dizziness, particularly when she is ambulating. Hemoglobin progression of 9.3 on 05/15/19, 8 and 7.2 on and 6.0 today. Patient has signed consent for blood transfusion. She does report some vaginal bleeding last night. She has been able to defecate and urinate without significant pain. Functional Status: Reports: Pain Controlled, Ambulating, Urinating - Review of Systems General: Reports: No Symptoms HEENT: Reports: No Symptoms Pulmonary: Reports: No Symptoms Cardiovascular: Reports: No Symptoms Gastrointestinal: Reports: No Symptoms, Diarrhea (Due to medication given for constipation) Genitourinary: Reports: No Symptoms Musculoskeletal: Reports: No Symptoms Skin: Reports: No Symptoms Neurological: Reports: Dizziness (With ambulation) Psychiatric: Reports: No Symptoms - General Info Date of Service: 05/17/19 - Patient Data Vital Signs - Most Recent: Last Vital Signs Temp 98.1 F 05/17/19 03:10 Pulse 95 05/17/19 03:10 Resp 15 05/17/19 03:10 BP 121/63 05/17/19 03:10 Pulse Ox 97 05/17/19 03:10 Weight - Most Recent: 224 lb Lab Results - Last 24 Hours: Laboratory Results - last 24 hr 05/16/19 05/17/19 Range/Units 14:02 06:05 WBC 13.01 H 8.90 (3.98-10.04) K/mm3 RBC 2.55 L 2.11 L (3.98-5.22) M/mm3 Hgb 7.2 L* 6.0 L* (11.2-15.7) gm/L Hct 22.8 L 19.2 L (34.1-44.9) % MCV 89.4 91.0 (79.4-94.8) fl MCH 28.2 28.4 (25.6-32.2) pg MCHC 31.6 L 31.3 L (32.2-35.5) g/dl RDW Std Deviation 47.9 H 49.8 H (36.4-46.3) fL Plt Count 222 172 L (182-369) K/mm3 MPV 12.5 H 11.8 (9.4-12.3) fl Neut % (Auto) 80.2 H 70.4 (34.0-71.1) % Lymph % (Auto) 12.7 L 20.4 (19.3-51.7) % Gilliam % (Auto) 6.1 6.9 (4.7-12.5) % Eos % (Auto) 0.3 L 1.5 (0.7-5.8) Baso % (Auto) 0.2 0.1 (0.1-1.2) % Neut # (Auto) 10.44 H 6.27 H (1.56-6.13) K/mm3 Lymph # (Auto) 1.65 1.82 (1.18-3.74) K/mm3 Gilliam # (Auto) 0.80 H 0.61 H (0.24-0.36) K/mm3 Eos # (Auto) 0.04 0.13 (0.04-0.36) K/mm3 Baso # (Auto) 0.02 0.01 (0.01-0.08) K/mm3 Manual Slide Review Abnormal smear Abnormal smear Med Orders - Current: Current Medications Acetaminophen (Tylenol) 650 mg PO Q6H PRN PRN Reason: mild pain or fever Last Admin: 05/16/19 11:26 Dose: 650 mg Hydrocodone Bitart/Acetaminophen ([place] 325-5 Mg) 1 tab PO Q6H PRN PRN Reason: Pain (moderate 4-6) Last Admin: 05/16/19 05:21 Dose: 1 tab Hydrocodone Bitart/Acetaminophen ([place] 325-5 Mg) 2 tab PO Q6H PRN PRN Reason: Pain (severe 7-10) Al Hydroxide/Mg Hydroxide (Mag-Al Plus) 30 ml PO Q8H PRN PRN Reason: Heartburn Benzocaine/Menthol (Dermoplast Pain Relief [place]) 0 gm TOP ASDIRECTED PRN PRN Reason: Perineal Comfort Measure Docusate Sodium (Colace) 100 mg PO BID BERRY Last Admin: 05/17/19 05:29 Dose: Not Given Emollient Ointment (Lansinoh Hpa) 0 gm TOP ASDIRECTED PRN PRN Reason: Sore Nipples Hydrocortisone Acetate (Anucort-Hc) 25 mg RECTAL BID PRN PRN Reason: Hemorrhoid pain Lactated Ringer's (Ringers, Lactated) 1,000 mls @ 150 mls/hr IV ASDIRECTED [facility] Last Admin: 05/16/19 01:40 Dose: 150 mls/hr Ibuprofen (Motrin) 600 mg PO Q6H PRN PRN Reason: Mild pain or fever Last Admin: 05/16/19 23:45 Dose: 600 mg Magnesium Hydroxide (Milk Of Magnesia) 30 ml PO BEDTIME PRN PRN Reason: Constipation Prenat Multivit/Harvey/Iron/Folic Ac ( Plus Iron) 1 each PO DAILY [facility] Last Admin: 05/16/19 11:23 Dose: 1 each Witch Madyson (Tucks) 1 pad TOP ASDIRECTED PRN PRN Reason: Perineal Comfort Measure Discontinued Medications Acetaminophen (Tylenol) 650 mg PO Q6H PRN PRN Reason: Pain (Mild 1-3) and fever Ephedrine Sulfate (Ephedrine Sulfate) 5 mg IVPUSH ASDIRECTED PRN PRN Reason: Hypotension Stop: 05/15/19 23:00 Fentanyl (Sublimaze) 100 mcg EPIDUR Q3H PRN PRN Reason: Pain Stop: 05/15/19 23:00 Last Admin: 05/15/19 16:35 Dose: 100 mcg Fentanyl/Bupivacaine HCl (Fentanyl/Bupivacaine/Ns 2 Mcg-0.125% 100 Ml) 100 ml EPIDUR ASDIRECTED BERRY Stop: 05/15/19 23:00 Last Admin: 05/15/19 14:40 Dose: 100 ml Lactated Ringer's (Ringers, Lactated) 1,000 mls @ 100 mls/hr IV ASDIRECTED [facility] Last Admin: 05/15/19 14:59 Dose: 100 mls/hr Oxytocin/Lactated Ringer's (Pitocin In Lr 10 Units/1,000 Ml) 10 unit in 1,000 mls @ 12 mls/hr IV TITRATE [facility]; Protocol Last Titration: 05/15/19 20:17 Dose: 0 munits/min, 0 mls/hr Oxytocin/Lactated Ringer's (Pitocin In Lr 10 Units/1,000 Ml) 10 unit in 1,000 mls @ 100 mls/hr IV .CONTINUOUS BERRY Phenylephrine HCl 1 mg/ Sodium (Chloride) 10.1 mls @ 1 mls/sec IV TITRATE BERRY; Protocol Lactated Ringer's (Ringers, Lactated) 1,000 mls @ 999 mls/hr IV .BOLUS ONE Stop: 05/16/19 01:36 Last Admin: 05/16/19 00:34 Dose: 999 mls/hr Lidocaine HCl (Xylocaine 1%) Confirm Administered Dose 50 ml .ROUTE .STK-MED ONE Stop: 05/15/19 22:05 Nalbuphine HCl (Nubain) 10 mg IVPUSH Q2H PRN PRN Reason: Pain Last Admin: 05/15/19 20:05 Dose: 10 mg Ondansetron HCl (Zofran) 4 mg IVPUSH ONETIME PRN PRN Reason: Nausea/Vomiting Stop: 05/15/19 23:00 Oxycodone HCl (Oxycodone) 5 mg PO ONETIME ONE Stop: 05/15/19 23:33 Last Admin: 05/15/19 23:39 Dose: 5 mg Oxycodone HCl (Oxycodone) 5 mg PO ONETIME ONE Stop: 05/16/19 00:51 Oxytocin (Pitocin) Confirm Administered Dose 10 unit .ROUTE .STK-MED ONE Stop: 05/15/19 22:19 Oxytocin (Pitocin) 10 unit IM ONETIME ONE Stop: 05/15/19 23:23 Last Admin: 05/15/19 23:40 Dose: 10 unit Sodium Chloride (Saline Flush) 10 ml FLUSH ASDIRECTED PRN PRN Reason: Keep Vein Open - Interaction Disposition, : in Room with Family Support Person: Significant Other - Recovery Exam Fundal Tone: Firm Fundal Level: 1 Fingerbreadths Below Umbilicus Fundal Placement: Midline Lochia Amount: Small Lochia Color: Rubra/Red Perineum Description: Other (see below) Other Perinuem Description: 3rd degree with repair/hematoma not visible; no sign of refilling Bladder Status: Voiding Urinary Elimination: Voided - Exam General: Alert, Oriented HEENT: Pupils Equal, EOMI Lungs: Normal Respiratory Effort Extremities: Normal Inspection Skin: Warm, Dry, Intact Neurological: No New Focal Deficit Psy/Mental Status: Alert, Normal Affect, Normal Mood Physical Findings Comment:: Vaginal exam demonstrated no significant bleeding. 3rd degree laceration healing well. - Problem List & Annotations (1) 39 weeks gestation of SNOMED Code(s): 65166692 Code(s): Z3A.39 - 39 WEEKS GESTATION OF Status: Acute Current Visit: Yes (2) Abnormal glucose tolerance test (GTT) during , antepartum Status: Acute Current Visit: Yes (3) Gestational hypertension SNOMED Code(s): 693842081 Code(s): O13.9 - GESTATIONAL HTN W/O SIGNIFICANT PROTEINURIA, UNSP TRIMESTER Status: Acute Current Visit: Yes (4) Late care affecting in third trimester SNOMED Code(s): 053849272, 935161398, 964935910 Code(s): O09.33 - SUPRVSN OF PREG W INSUFFICIENT ANTENAT CARE, THIRD TRIMESTER Status: Acute Current Visit: Yes (5) Limited care in third trimester SNOMED Code(s): 783330080, 126926502 Code(s): O09.33 - SUPRVSN OF PREG W INSUFFICIENT ANTENAT CARE, THIRD TRIMESTER Status: Acute Current Visit: Yes (6) Nonimmune to hepatitis B virus SNOMED Code(s): 826199650 Code(s): Z78.9 - OTHER SPECIFIED HEALTH STATUS Status: Acute Current Visit: Yes (7) Third degree perineal laceration SNOMED Code(s): 93357882, 235478592 Code(s): O70.20 - THIRD DEGREE PERINEAL LACERATION DURING DELIVERY, UNSP Status: Acute Current Visit: Yes (8) Vacuum extractor delivery, delivered SNOMED Code(s): 222658631 Code(s): O66.5 - ATTEMPTED APPLICATION OF VACUUM EXTRACTOR AND FORCEPS Status: Acute Current Visit: Yes (9) Vaginal delivery SNOMED Code(s): 031517639 Code(s): O80 - ENCOUNTER FOR FULL-TERM UNCOMPLICATED DELIVERY Status: Acute Current Visit: Yes - Problem List Review Problem List Initiated/Reviewed/Updated: Yes - Plan Plan:: Patient to receive blood transfusion due to symptomatic hemoglobin of 6.0 g/dL today with follow up CBC and monitoring for significant bleeding. Patient will likely return home tomorrow. Vitals per unit routine Routine post care
[2019-05-17] MEDS: Prenatal Multivitamin with Calcium/Folic Acid/Iron Tab PO SCH (09:13)
[2019-05-17] MEDS: Ibuprofen 600 MG Tab PO PRN ×2 (09:13→21:09)
[2019-05-17] MEDS: Acetaminophen 325 MG Tab PO PRN (17:25)
[2019-05-18] MEDS: Ibuprofen 600 MG Tab PO PRN (03:26)
--- NOTE | 2019-05-18 07:19 | PCM.DCSUM1 ---
Discharge Summary - Hospital Course Brief History: Doing well this morning. No complaints. Desires discharge. Admitted in with [facility]. VAVD with hematoma with evacuation. Diagnosis: Stroke: No - Discharge Data Discharge Date: 05/18/19 Discharge Disposition: Home, Self-Care 01 Condition: Good - Patient Summary/Data Operative Procedure(s) Performed: vacuum assisted delivery Consults: Consultations 05/15/19 23:22 Consult to Case Management/A P Mechanic [CONS] Routine Hospital Course: SROM, uncomplicated labor. VAVD with 3rd degree laceration and hematoma. Predelivery hgb 11.4. Gradually trended down to 9.3-8.0-7.2-6.0 on the morning of 05-17 at which point decision made to transfuse one unit pRBC. Post hgb 7.7- 7.0. Tolerating anemia. Pain controlled. No issues with BMs - Patient Instructions Diet: Usual Diet as Tolerated Activity: No Strenuous Activities Driving: Do Not Drive (1 week) Showering/Bathing: May Shower Notify Provider of: Fever, Increased Pain, Swelling and Redness, Drainage, Nausea and/or Vomiting - Discharge Plan *PRESCRIPTION DRUG MONITORING PROGRAM REVIEWED*: No *COPY OF PRESCRIPTION DRUG MONITORING REPORT IN PATIENT MILA: No Home Medications: Home Meds Acetaminophen [Tylenol Extra Strength] 500 mg PO 05/15/19 [History] Vits #93/Iron Fum/FA [ Formula Tablet] 05/15/19 [History] Referrals: New Cha MD [Primary Care Provider] - (1 week, likely with cbc) - Discharge Summary/Plan Comment DC Time >30 min.: No - General Info Date of Service: 05/18/19 Functional Status: Reports: Pain Controlled - Review of Systems General: Reports: No Symptoms HEENT: Reports: No Symptoms Pulmonary: Reports: No Symptoms Cardiovascular: Reports: No Symptoms Gastrointestinal: Reports: No Symptoms Genitourinary: Reports: No Symptoms Musculoskeletal: Reports: No Symptoms Skin: Reports: No Symptoms Neurological: Reports: No Symptoms Psychiatric: Reports: No Symptoms - Patient Data Vitals - Most Recent: Last Vital Signs Temp 36.6 C 05/18/19 03:30 Pulse 94 05/17/19 21:07 Resp 16 05/18/19 03:30 BP 110/64 05/18/19 03:30 Pulse Ox 98 05/18/19 03:30 Weight - Most Recent: 101.605 kg Lab Results - Last 24 hrs: Laboratory Results - last 24 hr 05/16/19 05/16/19 05/17/19 Range/Units 00:35 00:35 06:05 WBC (3.98-10.04) K/mm3 RBC (3.98-5.22) M/mm3 Hgb (11.2-15.7) gm/L Hct (34.1-44.9) % MCV (79.4-94.8) fl MCH (25.6-32.2) pg MCHC (32.2-35.5) g/dl RDW Std Deviation (36.4-46.3) fL Plt Count (182-369) K/mm3 MPV (9.4-12.3) fl Neut % (Auto) (34.0-71.1) % Lymph % (Auto) (19.3-51.7) % [place] % (Auto) (4.7-12.5) % Eos % (Auto) (0.7-5.8) Baso % (Auto) (0.1-1.2) % Neut # (Auto) (1.56-6.13) K/mm3 Lymph # (Auto) (1.18-3.74) K/mm3 [place] # (Auto) (0.24-0.36) K/mm3 Eos # (Auto) (0.04-0.36) K/mm3 Baso # (Auto) (0.01-0.08) K/mm3 Manual Slide Review Abnormal smear Blood Type A POSITIVE Gel Antibody Screen Negative Crossmatch See Detail See Detail 05/17/19 05/18/19 Range/Units 15:29 06:02 WBC 11.80 H 9.78 (3.98-10.04) K/mm3 RBC 2.75 L 2.48 L (3.98-5.22) M/mm3 Hgb 7.7 L D 7.0 L* (11.2-15.7) gm/L Hct 24.3 L 22.2 L (34.1-44.9) % MCV 88.4 89.5 (79.4-94.8) fl MCH 28.0 28.2 (25.6-32.2) pg MCHC 31.7 L 31.5 L (32.2-35.5) g/dl RDW Std Deviation 49.3 H 50.4 H (36.4-46.3) fL Plt Count 182 185 (182-369) K/mm3 MPV 11.3 11.9 (9.4-12.3) fl Neut % (Auto) 78.2 H 72.2 H (34.0-71.1) % Lymph % (Auto) 13.3 L 17.7 L (19.3-51.7) % [place] % (Auto) 6.1 6.3 (4.7-12.5) % Eos % (Auto) 1.3 2.4 (0.7-5.8) Baso % (Auto) 0.1 0.1 (0.1-1.2) % Neut # (Auto) 9.23 H 7.06 H (1.56-6.13) K/mm3 Lymph # (Auto) 1.57 1.73 (1.18-3.74) K/mm3 [place] # (Auto) 0.72 H 0.62 H (0.24-0.36) K/mm3 Eos # (Auto) 0.15 0.23 (0.04-0.36) K/mm3 Baso # (Auto) 0.01 0.01 (0.01-0.08) K/mm3 Manual Slide Review Abnormal smear Blood Type Gel Antibody Screen Crossmatch Med Orders - Current: Current Medications Acetaminophen (Tylenol) 650 mg PO Q6H PRN PRN Reason: mild pain or fever Last Admin: 05/17/19 17:25 Dose: 650 mg Hydrocodone Bitart/Acetaminophen (Fraser 325-5 Mg) 1 tab PO Q6H PRN PRN Reason: Pain (moderate 4-6) Last Admin: 05/16/19 05:21 Dose: 1 tab Hydrocodone Bitart/Acetaminophen (Fraser 325-5 Mg) 2 tab PO Q6H PRN PRN Reason: Pain (severe 7-10) Al Hydroxide/Mg Hydroxide (Mag-Al Plus) 30 ml PO Q8H PRN PRN Reason: Heartburn Benzocaine/Menthol (Dermoplast Pain Relief [place]) 0 gm TOP ASDIRECTED PRN PRN Reason: Perineal Comfort Measure Docusate Sodium (Colace) 100 mg PO BID BERRY Last Admin: 05/17/19 23:40 Dose: 100 mg Emollient Ointment (Lansinoh Hpa) 0 gm TOP ASDIRECTED PRN PRN Reason: Sore Nipples Hydrocortisone Acetate (Anucort-Hc) 25 mg RECTAL BID PRN PRN Reason: Hemorrhoid pain Lactated Ringer's (Ringers, Lactated) 1,000 mls @ 150 mls/hr IV ASDIRECTED [facility] Last Admin: 05/16/19 01:40 Dose: 150 mls/hr Ibuprofen (Motrin) 600 mg PO Q6H PRN PRN Reason: Mild pain or fever Last Admin: 05/18/19 03:26 Dose: 600 mg Magnesium Hydroxide (Milk Of Magnesia) 30 ml PO BEDTIME PRN PRN Reason: Constipation Prenat Multivit/[place]/Iron/Folic Ac ( Plus Iron) 1 each PO DAILY [facility] Last Admin: 05/17/19 09:13 Dose: 1 each Witch Madyson (Tucks) 1 pad TOP ASDIRECTED PRN PRN Reason: Perineal Comfort Measure Discontinued Medications Acetaminophen (Tylenol) 650 mg PO Q6H PRN PRN Reason: Pain (Mild 1-3) and fever Ephedrine Sulfate (Ephedrine Sulfate) 5 mg IVPUSH ASDIRECTED PRN PRN Reason: Hypotension Stop: 05/15/19 23:00 Fentanyl (Sublimaze) 100 mcg EPIDUR Q3H PRN PRN Reason: Pain Stop: 05/15/19 23:00 Last Admin: 05/15/19 16:35 Dose: 100 mcg Fentanyl/Bupivacaine HCl (Fentanyl/Bupivacaine/Ns 2 Mcg-0.125% 100 Ml) 100 ml EPIDUR ASDIRECTED [facility] Stop: 05/15/19 23:00 Last Admin: 05/15/19 14:40 Dose: 100 ml Lactated Ringer's (Ringers, Lactated) 1,000 mls @ 100 mls/hr IV ASDIRECTED [facility] Last Admin: 05/15/19 14:59 Dose: 100 mls/hr Oxytocin/Lactated Ringer's (Pitocin In Lr 10 Units/1,000 Ml) 10 unit in 1,000 mls @ 12 mls/hr IV TITRATE [facility]; Protocol Last Titration: 05/15/19 20:17 Dose: 0 munits/min, 0 mls/hr Oxytocin/Lactated Ringer's (Pitocin In Lr 10 Units/1,000 Ml) 10 unit in 1,000 mls @ 100 mls/hr IV .CONTINUOUS BERRY Phenylephrine HCl 1 mg/ Sodium (Chloride) 10.1 mls @ 1 mls/sec IV TITRATE BERRY; Protocol Lactated Ringer's (Ringers, Lactated) 1,000 mls @ 999 mls/hr IV .BOLUS ONE Stop: 05/16/19 01:36 Last Admin: 05/16/19 00:34 Dose: 999 mls/hr Lidocaine HCl (Xylocaine 1%) Confirm Administered Dose 50 ml .ROUTE .STK-MED ONE Stop: 05/15/19 22:05 Last Admin: 05/17/19 22:15 Dose: Not Given Nalbuphine HCl (Nubain) 10 mg IVPUSH Q2H PRN PRN Reason: Pain Last Admin: 05/15/19 20:05 Dose: 10 mg Ondansetron HCl (Zofran) 4 mg IVPUSH ONETIME PRN PRN Reason: Nausea/Vomiting Stop: 05/15/19 23:00 Oxycodone HCl (Oxycodone) 5 mg PO ONETIME ONE Stop: 05/15/19 23:33 Last Admin: 05/15/19 23:39 Dose: 5 mg Oxycodone HCl (Oxycodone) 5 mg PO ONETIME ONE Stop: 05/16/19 00:51 Last Admin: 05/17/19 23:34 Dose: Not Given Oxytocin (Pitocin) Confirm Administered Dose 10 unit .ROUTE .STK-MED ONE Stop: 05/15/19 22:19 Last Admin: 05/17/19 22:15 Dose: Not Given Oxytocin (Pitocin) 10 unit IM ONETIME ONE Stop: 05/15/19 23:23 Last Admin: 05/15/19 23:40 Dose: 10 unit Sodium Chloride (Saline Flush) 10 ml FLUSH ASDIRECTED PRN PRN Reason: Keep Vein Open - Exam General: Reports: Alert, Oriented HEENT: Reports: Pupils Equal, Pupils Reactive, EOMI, Mucous Membr. Moist/[place] Neck: Reports: Supple Lungs: Reports: Clear to Auscultation, Normal Respiratory Effort Cardiovascular: Reports: Regular Rate, Regular Rhythm GI/Abdominal Exam: Normal Bowel Sounds, Soft, Non-Tender (Female) Exam: Other (minimal bleeding, minimal blood on pad) Rectal (Female) Exam: Normal Exam, Normal Rectal Tone Back Exam: Reports: Normal Inspection, Full Range of Motion Extremities: Normal Inspection, Normal Range of Motion, Non-Tender, No Pedal Edema, Normal Capillary Refill Skin: Reports: Warm, Dry, Intact Wound/Incisions: Reports: Healing Well Neurological: Reports: No New Focal Deficit Psy/Mental Status: Reports: Alert, Normal Affect, Normal Mood
== END 2019-05-18 08:30 | disposition home or self-care (01) | DRG 768 ==
LOC: JD.OBCHECK 07:23 → JD.OB 07:25 → JD.OBCHECK 08:51 → JD.OB 08:52 → OBSVTOIN 22:02 → JD.OB 22:02
PROVIDERS: ADMIT Obstetrics & Gynecology; ATTEND Obstetrics & Gynecology
PROC: 0W3R7ZZ Control Bleeding in Genitourinary Tract, Via Natural or Artificial Opening (ICD-10-PCS; principal; 2019-05-15)
PROC: 0DQR0ZZ Repair Anal Sphincter, Open Approach (ICD-10-PCS; 2019-05-15)
PROC: 30233N1 Transfusion of Nonautologous Red Blood Cells into Peripheral Vein, Percutaneous Approach (ICD-10-PCS; 2019-05-15)
PROC: 3E033VJ Introduction of Other Hormone into Peripheral Vein, Percutaneous Approach (ICD-10-PCS; 2019-05-15)
PROC: 10D07Z6 Extraction of Products of Conception, Vacuum, Via Natural or Artificial Opening (ICD-10-PCS; 2019-05-15)
PROC: 10907ZC Drainage of Amniotic Fluid, Therapeutic from Products of Conception, Via Natural or Artificial Opening (ICD-10-PCS; 2019-05-15)
PROC: 0UCG7ZZ Extirpation of Matter from Vagina, Via Natural or Artificial Opening (ICD-10-PCS; 2019-05-15)
DX: O13.4 Gestational [pregnancy-induced] hypertension without significant proteinuria, complicating childbirth (principal); D62 Acute posthemorrhagic anemia; O70.20 Third degree perineal laceration during delivery, unspecified; O72.1 Other immediate postpartum hemorrhage; K21.9 Gastro-esophageal reflux disease without esophagitis; F17.210 Nicotine dependence, cigarettes, uncomplicated; O99.334 Smoking (tobacco) complicating childbirth; Z37.0 Single live birth; Z3A.39 39 weeks gestation of pregnancy
CPT/HCPCS: 01967; 36415; 36430; 51702; 59025; 59409; 80053; 80306; 82570; 82962; 84156; 85025; 86592; 86850; 86900; 86901; 86922; A9270-GY; J2300; J2590; J3010; J3490; J7120; P9016

== ENCOUNTER 2019-05-18 10:24 | Emergency (ER) | payer MEDICAID ==
--- NOTE | 2019-05-18 11:27 | EDM.PDOC ---
ED HPI GENERAL MEDICAL PROBLEM - General Chief Complaint: Gastrointestinal Problem Stated Complaint: LIGHT HEADED, SHAKEY Time Seen by Provider: 05/18/19 11:10 Source of Information: Reports: Patient History Limitations: Reports: No Limitations - History of Present Illness INITIAL COMMENTS - FREE TEXT/NARRATIVE: Patient is a 28-year-old female who presents to the ED complaining of dizziness with standing and feeling shaky. She's also had a few episodes of diarrhea and mildly nauseated with standing. She was discharged from OB today approximately 2 hrs prior to admission to the E.D. Patient vaginally delivered her baby on 15 May. She did develop a hematoma that required I&D and loss significant amount of blood. During admission to the hospital she received one unit of blood. The bleeding from her vagina has subsided consistent with previous deliveries. She notes only changing the pad every 5-6 hours. Patient's FRANCHISE SALES REPRESENTATIVE was Dr. Cha. She currently denies any tunnel vision, chest pain, shortness of breath, abdominal pain, nausea vomiting, bloody stools, dark tarry stools, dysuria, or any additional complaints. States she has been experiencing intermittent episodes of diarrhea. 3 episodes today described as low volume. - Related Data Allergies Allergy/AdvReac Type Severity Reaction Status Date / Time banana Allergy Anaphylactic Verified 05/18/19 11:03 Shock kiwi Allergy Facial Verified 05/18/19 11:03 Swelling Penicillins Allergy Anaphylactic Verified 05/18/19 11:03 Shock strawberry Allergy Facial Verified 05/18/19 11:03 Swelling Home Meds: Home Meds Acetaminophen [Tylenol Extra Strength] 500 mg PO 05/15/19 [History] Vits #93/Iron Fum/FA [ Formula Tablet] 05/15/19 [History] Past Medical History Gastrointestinal History: Reports: Other (See Below) Other Gastrointestinal History: acid reflux FRANCHISE SALES REPRESENTATIVE History: Reports: , Spontaneous Neurological History: Reports: Migraines Endocrine/Metabolic History: Reports: Other (See Below) Other Endocrine/Metabolic History: failed 1 hr gtt, patient refused 3 hr gtt. Social & Family History - Living Situation & Occupation Living situation: Reports: Single, with Significant Other ED ROS GENERAL - Review of Systems Review Of Systems: ROS reveals no pertinent complaints other than HPI. ED EXAM - Physical Exam Exam: See Below Exam Limited By: No Limitations General Appearance: Alert, WD/WN, No Apparent Distress Eye Exam: Bilateral Eye: PERRL Ears: Hearing Grossly Normal Nose: Normal Inspection Throat/Mouth: Normal Voice, No Airway Compromise Head: Atraumatic, Normocephalic Neck: Normal Inspection, Supple, Non-Tender, Full Range of Motion. No: Lymphadenopathy (L), Lymphadenopathy (R) Respiratory/Chest: No Respiratory Distress, Lungs Clear, Normal Breath Sounds, No Accessory Muscle Use, Chest Non-Tender Cardiovascular: Normal Peripheral Pulses, Regular Rate, Rhythm, No Murmur GI/Abdominal Exam: Normal Bowel Sounds, Soft, Non-Tender, No Organomegaly, No Distention Extremities: Normal Inspection, Non-Tender Neurological: Alert, Oriented, CN II-XII Intact, Normal Cognition, Normal Gait, No Motor/Sensory Deficits Psychiatric: Normal Affect, Normal Mood Skin Exam: Warm, Dry, Intact, Pallor Course - Vital Signs Last Recorded V/S: Last Vital Signs Temp 97.5 F 05/18/19 11:03 Pulse 95 05/18/19 11:03 Resp 18 05/18/19 11:03 BP 145/80 H 05/18/19 11:03 Pulse Ox 99 05/18/19 11:03 - Orders/Labs/Meds Orders: Active Orders 24 hr Category Date Time Status Peripheral IV Care [RC] . DIRECTED Care 05/18/19 11:24 Active PACKED CELLS [RED BLOOD CELLS LP] [BBK] Stat Lab 05/18/19 11:38 Results TYPE AND SCREEN [BBK] Stat Lab 05/18/19 11:38 Results Transfuse Red Blood Cells [COMM] Stat Oth 05/18/19 11:24 Ordered Labs: Laboratory Tests 05/18/19 05/18/19 Range/Units 11:38 11:38 WBC 14.00 H (3.98-10.04) K/mm3 RBC 2.88 L (3.98-5.22) M/mm3 Hgb 8.2 L (11.2-15.7) gm/L Hct 25.5 L (34.1-44.9) % MCV 88.5 (79.4-94.8) fl MCH 28.5 (25.6-32.2) pg MCHC 32.2 (32.2-35.5) g/dl RDW Std Deviation 49.6 H (36.4-46.3) fL Plt Count 218 (182-369) K/mm3 MPV 11.3 (9.4-12.3) fl Neutrophils % (Manual) 89 H (40-60) % Band Neutrophils % 0 (0-10) % Lymphocytes % (Manual) 7 L (20-40) % Atypical Lymphs % 0 % Monocytes % (Manual) 3 (2-10) % Eosinophils % (Manual) 1 (0.7-5.8) % Basophils % (Manual) 0 L (0.1-1.2) Platelet Estimate Adequate Plt Morphology Comment Normal Polychromasia 1+ slight Anisocytosis Moderate Microcytosis Moderate Macrocytosis Few RBC Morph Comment Not Reportable Blood Type A POSITIVE Gel Antibody Screen Negative Crossmatch See Detail Meds: Medications Discontinued Medications Generic Name Dose Route Start Last Admin Trade Name Polaq PRN Reason Stop Dose Admin Sodium Chloride 1,000 mls @ 150 mls/hr 05/18/19 11:30 05/18/19 11:43 Normal Saline IV 150 mls/hr ASDIRECTED COUNT INCLUDES THE [facility] Administration - Re-Assessments/Exams Free Text/Narrative Re-Assessment/Exam: On exam patient appears pale slightly dizzy with standing. Orthostatic vital signs are negative. Blood pressure normotensive heart rate normal rate and regular. Since patient has been recently discharged from the hospital I will speak with the on-call [employer]CHISE SALES REPRESENTATIVE for further direction. Discussed patient with Dr. Mackey shank boner FR[employer]CHISE SALES REPRESENTATIVE specialists. CBC obtained this morning indicated hemoglobin of 7.0. This has increased from 6.[address] Mackey. She recommended repeat CBC and administration of one additional unit of packed red blood cells. This is since she is symptomatic with the dizziness with standing and ambulation. 1249 Repeat CBC indicated hemoglobin is 8.2. I did speak with Dr. Mackey and she continued to recommended transfusing 1 unit of blood since the patient is experiencing symptoms. 1330 The 1 unit of blood has not been transfused. Patient per nursing staff wants to go home and refuses the blood. I have spoken with the patient she has been up to the bathroom a few times and has no dizziness. She is wishing to be discharged home. Refuses the blood transfusion. Return precautions discussed with patient. She had no further questions or concerns. Discharge instructions as documented. Departure - Departure Time of Disposition: 13:43 Disposition: Home, Self-Care 01 Condition: Good Clinical Impression: Postoperative anemia due to acute blood loss, Status post vaginal delivery - Discharge Information Instructions: Anemia, Dehydration, Adult, [id number] Referrals: New Cha MD [Primary Care Provider] - Forms: ED Department Discharge Additional Instructions: Continue to push the fluids. Eat a balanced diet. Continue taking the vitamins. Start taking ferrous sulfate OTC 325 mg 1 tablet twice a day. Do this for the next month or if told differently by FRANCHISE SALES REPRESENTATIVE specialist. Keep appointment as scheduled with FR[employer]CHISE SALES REPRESENTATIVE specialist. Monitor for increased bleeding or worsening symptoms and so please return back to the [facility] department for reevaluation. - My Orders Last 24 Hours: My Active Orders 05/18/19 11:24 Peripheral IV Care [RC] . DIRECTED Transfuse Red Blood Cells [COMM] Stat 05/18/19 11:38 PACKED CELLS [RED BLOOD CELLS LP] [BBK] Stat TYPE AND SCREEN [BBK] Stat - Assessment/Plan Last 24 Hours: My Active Orders 05/18/19 11:24 Peripheral IV Care [RC] . DIRECTED Transfuse Red Blood Cells [COMM] Stat 05/18/19 11:38 PACKED CELLS [RED BLOOD CELLS LP] [BBK] Stat TYPE AND SCREEN [BBK] Stat
[2019-05-18] MEDS ORDERED: Sodium Chloride 0.9% 1,000 ML IV SCH (11:30)
== END 2019-05-18 14:03 | disposition home or self-care (01) ==
LOC: JD.ED 10:24
DX: O90.81 Anemia of the puerperium (principal); Z88.0 Allergy status to penicillin; Z91.018 Allergy to other foods
CPT/HCPCS: 36415; 85007; 85027; 86850; 86900; 86901; 86922; 96360; 96361; 99284; J7040